=== PATIENT | male | born 1950 | race Caucasian/White ===

== ENCOUNTER 2023-09-12 20:18 | Inpatient (IN) | payer BC, MEDICARE, SELFPAY ==
[2023-09-12 17:46] VITALS: BP 167/87
[2023-09-12 18:16] LABS: COVID-19 Antigen Negative (Negative)
[2023-09-12 18:23] VITALS: BMI 23.5
[2023-09-12] MEDS: DECADRON 10 MG IV (18:57)
[2023-09-12] MEDS: DUONEB 3 ML INH (18:58)
[2023-09-12 19:00] VITALS: BP 90/76
[2023-09-12 19:07] LABS: % Basophils 0.4 % (0-2); % Immature Granulocytes 0.8 % (0-0.5); % Monocytes 7.8 % (1.7-9.3); Absolute Basophils 0.1 10^3/uL (0-0.2); Absolute Immature Granulocytes 0.2 10^3/uL (0-0.05); Absolute Lymphocytes 0.8 10^3/uL (1.2-3.4); Hematocrit 36.3 % (39.0-52.0); Hemoglobin 12.7 g/dL (13.0-18.0); Mean Corpuscular Hgb 30.4 pg (27.0-31.0); Mean Corpuscular Volume 86.8 fL (80.0-94.0); Mean Platelet Volume 9.6 fL (7.4-10.4); Nucleated Red Blood Cells % 0 % (-); Platelet Count 422 10^3/uL (130-400); Red Blood Cell Count 4.18 10^6/uL (4.70-6.10); Red Cell Dist. Width 14.8 % (11.5-14.5); White Blood Cell Count 26.2 10^3/uL (4.8-10.8)
[2023-09-12 19:19] LABS: ALT (SGPT) 49 U/L (0-50); AST (SGOT) 36 U/L (17-59); Albumin 3.9 g/dl (3.5-5.0); Alkaline Phosphatase 83 U/L (38-126); Blood Urea Nitrogen 10 mg/dl (9-20); Calcium 9.2 mg/dl (8.4-10.2); Carbon Dioxide 28 mmol/L (22-30); Chloride 94 mmol/L (98-107); Estimated Creatinine Clearance 111 ml/min; Glucose 116 mg/dl (70-99); Potassium 4.4 mmol/L (3.5-5.1); Sodium 127 mmol/L (135-145); Total Bilirubin 0.5 mg/dl (0.2-1.3); Total Protein 7.2 g/dl (6.3-8.2); eGFR > 60.00
[2023-09-12 19:20] LABS: Lactic Acid 0.9 mmol/L (0.7-2.0)
--- NOTE | 2023-09-12 19:27 | ED.GENMED ---
History of Present Illness
General
Chief Complaint: Breathing Problem
Source: patient and family
Exam Limitations: none
Time Seen by Provider: 09/12/23 18:21
Nursing documentation reviewed up to this point in time: agreed with
Travel History
Have you had any contact with someone who has COVID-19?: No
Do you have any symptoms of coronavirus? Fever > 100 degrees, chills, cough, shortness of breath, sore throat, loss of taste or smell, muscle aches, or headache?: Yes
Symptoms:: cough
History of Present Illness
History of Present Illness:
72-year-old male quit smoking 2 weeks ago, has been sick with upper respiratory infection for a little over a week was had a christening, since then he has had some cough chills sweats possibly fever decreased p.o. intake worse at night he is an ex
alcoholic has been dry for about 5 years after rehab he is retired he uses a nebulizer though never formally diagnosed with COPD states he ran out of [employer] for his nebulizer
Past History
Past History
ED Past Medical History: HTN; Negative COPD
ED Past Surgical History: None
Social History
Tobacco: Former smoker
Alcohol: Former
Drug: None
Personal:
Living: with family
Employment: Retired
Review of Systems
Review of Systems
All Other Systems: Not applicable
Constitutional: Reports fever, fatigue, sleep disturbance and chills
Respiratory: Reports cough and trouble breathing
Cardiac: Reports no symptoms
ABD/GI: Reports no symptoms
Musculoskeletal: Reports no symptoms
Neurological: Reports weakness
Endocrine: Reports no symptoms
Phy Exam
Physical Exam
Physical Exam:
Physical Exam
General: 72-year-old male chronically ill-appearing
Neck: Lips are dry
Heart: Tachycardia
Lungs: Diminished breath sounds with wheeze and rhonchi right greater than left
Abdomen: Nontender
Neuro: alert and oriented. no focal neurological deficits
Skin: no rash
Psychiatric: well kept. interactive and cooperative
Extremities: no edema. no calf tenderness.
Scores
Heart Failure Risk
Heart Failure Risk Score: Not Applicable
Course
Orders/Labs/Results
Orders:
Orders
09/12/23 Dinner
Regular
At Your Request: Full Participation
Does patient need a safe tray?: No
09/12/23 17:52
COVID-19 Antigen Urgent
Source: Nasal Swab
Influenza A+B Rapid Molecular Urgent
VERONICA Source: Nasal Swab
Specimen Description:
09/12/23 18:45
Electrocardiogram (*1) Stat
Reason for Study: Other
Other Reason for Exam: pneumonia
Cardiac Monitoring- Treatment ONCE
EKG- Treatment ONCE
IV Insert/Care/Rem.- Treatment PRN
Dexamethasone Sod Phosphate [Decadron] 10 mg IV NOW STA
Ipratropium/Albuterol Sulfate [Duoneb] 3 ml INH R NOW STA
CR Chest Portable - 1 View Urgent
Comment:
Reason For Exam: sob low sats
Reason Study Needs to be Portable: Patient Unstable
09/12/23 18:50
Blood Culture Q30M
VERONICA Source: Blood/Venous
Specimen Description:
09/12/23 18:51
Complete Blood Count/With Diff Urgent
Comprehensive Metabolic Panel Urgent
Lactic Acid Q4H
Comment: CANCEL 2nd LACTIC ACID IF 1st LACTIC ACID IS LESS THAN 2
Blood Culture Q30M
VERONICA Source: Blood/Venous
Specimen Description:
09/12/23 19:26
Azithromycin [Zithromax] 500 mg PO NOW STA
CefTRIAXone [Rocephin] 1,000 mg IV NOW STA
09/12/23 19:51
Admit/Transfer Patient As Directed
Co-Sign Provider:
Level of Care: Inpatient admission
Assign to:: Medical/Surgical
Physician / Group: deirdre
Diagnosis: pneumonia, copd exacerbation
Reason for Hospitalization: pneumonia, copd exacerbation
Expected length of stay greater than two midnights?: Yes
ELOS- Estimated Length of Stay in days: 2
I certify the patient meets the requirements for IP care: Yes
09/12/23 19:52
Code Status As Directed
Resuscitation Status: Full Code
09/12/23 19:54
Sputum Culture [Respiratory Culture/Gram Stain] Urgent
VERONICA Source: Sputum
Specimen Description:
09/12/23 20:56
0.9% Sodium Chloride 1000 ml [Nss] 1,000 ml IV 100 mls/hr
Acetaminophen [Tylenol] 650 mg PO Q4HPRN PRN
Guaifenesin [Mucinex] 600 mg PO Q12
Heparin 5,000 units SC Q12
09/12/23 20:56
Activity As Directed
Activity Level: As Tolerated
Intake/ Output As Directed
Frequency: Per unit guidelines
Vital Signs As Directed
Frequency: Per unit guidelines
DX Deep Vein Thrombosis Video Routine
09/13/23 06:00
Basic Metabolic Panel IN AM
Complete Blood Count/With Diff IN AM
Dexamethasone Sod Phosphate [Decadron] 4 mg IV Q12H
09/13/23 08:00
Aspirin Low Dose EC [Aspir Low (Enteric Coated)] 81 mg PO DAILY
Cholecalciferol (Vitamin D3) [VITAMIN D3 (cholecalciferol)] 50 mcg PO DAILY
Ipratropium/Albuterol Sulfate [Duoneb] 3 ml INH R QID
09/13/23 20:00
Azithromycin 500 mg/250 ml [Zithromax Infusion] 500 mg in 250 ml IV Q24H
CefTRIAXone [Rocephin] 1,000 mg IV Q24H
Abnormal Lab Results
09/12/23
18:51
WBC 26.2 H 10^3/uL
(4.8-10.8)
RBC 4.18 L 10^6/uL
(4.70-6.10)
Hgb 12.7 L g/dL
(13.0-18.0)
Hct 36.3 L %
(39.0-52.0)
RDW 14.8 H %
(11.5-14.5)
Plt Count 422 H 10^3/uL
(130-400)
Abs Immat Gran (auto) 0.2 H 10^3/uL
(0-0.05)
Absolute Neuts (auto) 23.0 H 10^3/uL
(1.4-6.5)
Absolute Lymphs (auto) 0.8 L 10^3/uL
(1.2-3.4)
Absolute Monos (auto) 2.0 H 10^3/uL
(0.1-0.6)
Immature Gran % 0.8 H %
(0-0.5)
Neutrophils % 88.0 H %
(42.2-75.2)
Lymphocytes % 3.0 L %
(20.5-51.1)
Sodium 127 L mmol/L
(135-145)
Chloride 94 L mmol/L
(98-107)
Creatinine 0.6 L mg/dL
(0.7-1.3)
Glucose 116 H mg/dl
(70-99)
09/12/23 18:51
09/12/23 18:51
Vital Signs
Initial and Last Documented VS:
Initial Vital Signs
Temp Pulse Resp BP Pulse Ox
100.0 F 112 18 167/87 94
09/12/23 17:46 09/12/23 17:46 09/12/23 17:46 09/12/23 17:46 09/12/23 17:46
Last Documented Vital Signs
Temp Pulse Resp BP Pulse Ox
99.6 F 106 20 158/94 96
09/12/23 21:06 09/12/23 21:06 09/12/23 21:06 09/12/23 21:06 09/12/23 21:06
MDM/Problems Addressed
Differential Diagnosis Includes:
COPD pneumonia bronchitis pneumothorax doubt PE
MDM/Problems Addressed:
Cough fever shortness of breath chills
Chronic conditions affecting care:
Ex-smoker recently quit likely COPD
Chronic conditions affecting care: COPD
Acute Exacerbation and/or Progression of Chronic Illness: COPD
*Radiology
Radiology exam reviewed: preliminary read by ED provider
*Pulse Oximetry
Patient hypoxic: yes
Comment: 88
*EKG
Interpreted by ED Provider?: Yes
Interpretation: abnormal
Comparison EKG: no comparison EKG present
Heart Rate: 88
Rate: normal
Rhythm: sinus
Ischemia: non-specific ST changes
*Vest Presser Interpretation
Rate: tachycardiac
Interpretation: abnormal
Heart Rate: 105
Rhythm: sinus
*Critical Care Note
Total Time (30-74mins, 75-104mins- exclusive of procedures): 15
Patient Management
Social determinants of health affecting care: Living situation and Strong social support
Discussion with other providers: Hospitalist
Escalation/DeEscalation of care consider admission/obs:
Patient with significant leukocytosis looks like pneumonia suspect underlying COPD is hypoxic 88% will require admission
ED Attending Note
-
Portions of this chart may have been created with voice recognition software.� Occasional wrong word or��sound alike� substitutions may have occurred due to the inherent limitations of voice recognition software.
Discharge Plan
Departure
Patient Disposition: Admit
Date of Disposition: 09/12/23
Time of Disposition: 19:30
Admit to: Med/Surg
Presentation/result/management discussed w/ accepting MD/DO: Hospitalist
Condition: Fair
Covid-19: Negative COVID-19
Discharge Problem:
COPD exacerbation, Pneumonia, Hypoxia
Interventions
Interventions:
*Risk Screen - Suicide Last Done: 09/12/23 21:14
*General Assessment Last Done: 09/12/23 18:23
*Neglect/Abuse Screening Last Done: 09/12/23 17:46
ED- Fall Risk Assessment Last Done: 09/12/23 18:23
*ED COVID-19 Vaccine History Last Done: 09/12/23 21:14
*Nursing Disposition Last Done: 09/12/23 20:59
ED- Cardiac Assessment Last Done: 09/12/23 18:23
ED- Pulmonary Assessment Last Done: 09/12/23 18:23
Discharge Date and Time
Discharge Date/Time: 09/12/23 21:00
[2023-09-12] MEDS: ROCEPHIN 1000 MG IV (19:30)
[2023-09-12] MEDS: ZITHROMAX 500 MG PO (19:30)
--- NOTE | 2023-09-12 19:55 | HPS.HSE ---
Addendum entered and electronically signed by Maya Chandler MD 09/12/23 19:58:
There maybe a small right sided pleural effusion, which may require drainage if sufficiently large.
Original Note:
Family Physician
-
Family Physician: Seng Peres
Chief Complaint
-
shortness of breath, cough
History of Present Illness
72-year-old male past medical history of COPD, SIADH, steroid-induced hyperglycemia, history of alcohol use disorder, vitamin D deficiency, presenting with sore throat, headache, productive cough and shortness of breath for the past 1-1/2 weeks
after attending [facility] shortly prior. Symptoms got worse since then. No sick contacts. No nausea or vomiting or diarrhea. No abdominal pain. No chest pain. He also ran out of his nebulizers and blood pressure medications.
Patient smokes a pack of cigarettes a day but stopped smoking in the past week but he could not breathe. He denies alcohol use.
Medical History
Past Medical History
Past Medical History: Reports Other ( COPD, SIADH, steroid-induced hyperglycemia, history of alcohol use disorder, vitamin D deficiency)
Past Surgical History: Reports None
Social History
Tobacco: Smoker
Alcohol: Former
Drug: None
Family History
Family History: Not pertinent
Allergies / Home Medications
Allergies reflects when Allergies were last updated in [facility].
Home Medications with original date entered in [facility]
Allergy/Medication List:
Allergies
Allergy/AdvReac Type Severity Reaction Status Date / Time
bee venom protein (honey bee) Allergy Hives Verified 07/10/22 18:11
Home Medications
acetaminophen 325 mg tablet (Tylenol) 650 mg PO Q6H PRN mild pain 07/11/22
aspirin 81 mg tablet,delayed release 81 mg PO DAILY 07/11/22
cholecalciferol (vitamin D3) 50 mcg (2,000 unit) tablet 2,000 unit PO DAILY #0 tabs 07/16/22
ipratropium 0.5 mg-albuterol 3 mg (2.5 mg base)/3 mL nebulization soln 3 ml inhalation R QID PRN sob/wheezing 09/12/23
Review of Systems
-
History Source: Patient
A 12 point ROS was completed and negative except as noted: Yes
Constitutional: Reports No Symptoms
EENT: Reports No Symptoms
Respiratory: Reports See HPI
Cardiac: Reports No Symptoms
Abdomen/GI: Reports No Symptoms
: Reports No Symptoms
Musculoskeletal: Reports No Symptoms
Skin: Reports No Symptoms
Neurological: Reports No Symptoms
Endocrine: Reports No Symptoms
Hematologic/Lymphatic: Reports No Symptoms
Psych: Reports No Symptoms
Physical Exam
Vital Signs
Vital Signs
Temp Pulse Resp BP Pulse Ox
100.0 F 108 27 90/76 94
09/12/23 17:46 09/12/23 19:30 09/12/23 19:30 09/12/23 19:00 09/12/23 17:46
Physical Exam
General: Well Developed, Well Nourished and No Apparent Distress
HEENT: NormoCephalic, Moist mucous membranes and Atraumatic
Respiratory: Wheezes (at bases )
Cardiac: S1/S2 and Regular Rhythm; No Murmur or Rub
GI: Soft, Non Tender, Non Distended and Normal Bowel Sounds; No Organomegaly
Rectal: Deferred by Provider
Musculoskeletal: No Clubbing, No Cyanosis and No Edema
Skin: No Rash
Neuro: Nonfocal/grossly intact
Laboratory Results
-
09/12/23 18:51
09/12/23 18:51
Laboratory Results
Lactic Acid 0.9 mmol/L (0.7-2.0) 09/12/23 18:51
Total Bilirubin 0.5 mg/dl (0.2-1.3) 09/12/23 18:51
AST 36 U/L (17-59) 09/12/23 18:51
ALT 49 U/L (0-50) 09/12/23 18:51
Alkaline Phosphatase 83 U/L (38-126) 09/12/23 18:51
Data Reviewed
-
Lab Data: Labs Reviewed by me
Old Records: Reviewed
Impression/Plan
-
IMPRESSION:
PLAN:
# Sepsis (fever, tachycardia, leukocytosis, tachypnea ) secondary to commune acquired pneumonia
-COVID and influenza negative
-Chest x-ray appears to show right middle lobe pneumonia, report pending
-Blood cultures, sputum culture
-IV fluids
-Ceftriaxone/azithromycin
# COPD exacerbation
# Recent smoker
-bilateral wheezing at bases
-Dexamethasone 4 mg every 12
-DuoNebs every 6 hours
-Mucinex
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
-Monitor with IV fluids
Thrombocytosis secondary to infection
-Continue to monitor
Primary alcohol use disorder
-No alcohol in 5 years
Vitamin D deficiency
-Continue vitamin D
Full code
DVT prophylaxis�heparin
Regular diet
[2023-09-12 20:01] VITALS: BP 118/64
[2023-09-12 21:06] VITALS: BP 158/94; BMI 23.3
--- NOTE | 2023-09-12 21:30 | PTCARENOTE ---
Patient admitted from ED. Patient AAO x3, on 2LNC, complains of mild sob with activity. Patient in no acute distress otherwise. Patient oriented to room and call ozuna is within reach.
[2023-09-12] MEDS: NSS 1000 IV (21:57)
[2023-09-12] MEDS: MUCINEX 600 MG PO (21:57)
[2023-09-12] MEDS: HEPARIN 5000 UNITS SC (21:58)
[2023-09-12 23:32] VITALS: BP 133/65
[2023-09-13] MEDS: DECADRON 4 MG IV (05:28)
[2023-09-13] MEDS: NSS 1000 IV (06:07)
[2023-09-13 06:26] LABS: % Basophils 0.2 % (0-2); % Immature Granulocytes 1.9 % (0-0.5); % Lymphocytes 2.7 % (20.5-51.1); % Monocytes 1.4 % (1.7-9.3); % Neutrophils 93.8 % (42.2-75.2); Absolute Immature Granulocytes 0.4 10^3/uL (0-0.05); Absolute Lymphocytes 0.5 10^3/uL (1.2-3.4); Absolute Monocytes 0.3 10^3/uL (0.1-0.6); Hematocrit 34.5 % (39.0-52.0); Hemoglobin 11.8 g/dL (13.0-18.0); Mean Corp Hgb Conc. 34.2 g/dL (33.0-37.0); Mean Corpuscular Hgb 30.6 pg (27.0-31.0); Mean Corpuscular Volume 89.4 fL (80.0-94.0); Mean Platelet Volume 10.1 fL (7.4-10.4); Nucleated Red Blood Cells % 0 % (-); Platelet Count 401 10^3/uL (130-400); Red Blood Cell Count 3.86 10^6/uL (4.70-6.10); Red Cell Dist. Width 14.6 % (11.5-14.5); White Blood Cell Count 19.2 10^3/uL (4.8-10.8)
[2023-09-13 06:51] LABS: Blood Urea Nitrogen 11 mg/dl (9-20); Calcium 8.6 mg/dl (8.4-10.2); Carbon Dioxide 24 mmol/L (22-30); Chloride 99 mmol/L (98-107); Estimated Creatinine Clearance 111 ml/min; Glucose 131 mg/dl (70-99); Potassium 4.8 mmol/L (3.5-5.1); Sodium 129 mmol/L (135-145); eGFR > 60.00
[2023-09-13] MEDS: DUONEB 3 ML INH ×4 (07:53→19:12)
[2023-09-13 08:10] VITALS: BP 147/82
[2023-09-13] MEDS: HEPARIN 5000 UNITS SC ×2 (08:16→20:04)
[2023-09-13] MEDS: VITAMIN D3 (cholecalciferol) 50 MCG PO (08:18)
[2023-09-13] MEDS: ASPIR LOW (ENTERIC COATED) 81 MG PO (08:18)
[2023-09-13] MEDS: MUCINEX 600 MG PO ×2 (08:18→20:03)
--- NOTE | 2023-09-13 09:16 | W.PN.HOSP.TC ---
Today's Communication/Plan
-
Titrate O2
Continue neb treatments
Will reduce present course of IV steroids to 2 mg every 12
Will hold off on further IV fluids given hyponatremia and increased vascularity on chest x-ray
Assessment / Plan
Assessment / Plan
72-year-old male past medical history of COPD, SIADH, steroid-induced hyperglycemia, history of alcohol use disorder, vitamin D deficiency, presenting with sore throat, headache, productive cough and shortness of breath for the past 1-1/2 weeks
after attending [facility] shortly prior. Symptoms got worse since then. No sick contacts. No nausea or vomiting or diarrhea. No abdominal pain. No chest pain. He also ran out of his nebulizers and blood pressure medications.
Patient smokes a pack of cigarettes a day but stopped smoking in the past week but he could not breathe. He denies alcohol use.
# Sepsis (fever, tachycardia, leukocytosis, tachypnea ) secondary to commune acquired pneumonia
-COVID and influenza negative
-Chest x-ray appears to show right middle lobe pneumonia, hypoxia or pneumonia in similar location/increased vascularity also noted
-Blood cultures, sputum culture
-IV fluids /with DC IV fluids at this point
-Ceftriaxone/azithromycin
# COPD exacerbation
# Recent smoker
-bilateral wheezing at bases but not impressive
-Dexamethasone 4 mg every 12
-DuoNebs every 6 hours
-Mucinex
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
-Monitor with IV fluids
Thrombocytosis secondary to infection
-Continue to monitor
Primary alcohol use disorder
-No alcohol in 5 years
Vitamin D deficiency
-Continue vitamin D
Full code
DVT prophylaxis�heparin
Regular diet
Anticipated Discharge: 24 - 48 hours
Subjective/Interval History
-
Date of Service: September 13, 2023
States he is feeling significantly better as far as his breathing and congestion from yesterday. He states that the nebulizer therapy is greatly helps. He is on 2 L nasal flow oxygen but is not on at home.
Objective Data
-
Labs:
Laboratory Results
09/13/23
05:20
WBC 19.2 H
Hgb 11.8 L
Hct 34.5 L
Plt Count 401 H
Sodium 129 L
Potassium 4.8
Chloride 99
Carbon Dioxide 24
BUN 11
Creatinine 0.4 L
Glucose 131 H
Calcium 8.6
Vital Signs:
Vital Signs
Temp Pulse Resp BP Pulse Ox
98.7 F 89 20 147/82 97
09/13/23 08:10 09/13/23 08:10 09/13/23 08:10 09/13/23 08:10 09/13/23 08:10
I&O
09/12/23 09/13/23 09/14/23
06:59 06:59 06:59
Intake Total 1380 / 1380
Output Total 525 / 525
Balance 855 / 855
Review of Systems
-
History Source: Patient
Constitutional: Reports No Symptoms
Respiratory: Reports Cough
Cardiac: Reports No Symptoms
Physical Exam
-
HEENT: Normocephalic and PERRLA
Respiratory: Rhonchi and Crackles
Cardiac: Regular Rhythm
GI: Soft and Nontender
Neuro: Awake, Alert and Oriented
Psych: Calm
Data Reviewed
-
Total Time Spent with Patient (in minutes): 56
Labs: Labs Reviewed by me (Leukocytosis has trended down from 26,000 and 19,000 today/)
--- NOTE | 2023-09-13 10:09 | CM ---
Met with patient at bedside; initial assessment completed
Pharmacy verified; [facility], [facility]
Patient lives in a multilevel home with his ; 1 step to enter; 10 steps between floors; powder room on the 1st floor; 2nd floor bath has walk-in shower, grab bar and seat
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
DME: Nebulizer
Transport: or one of his daughters will provide ride home
SNF/Rehab/Home Health utilization history: [facility]
Plan: discharge to home when medically stable; will monitor for DC needs
[2023-09-13] MEDS: DECADRON 2 MG IV ×2 (11:18→21:39)
[2023-09-13 15:52] VITALS: BP 149/76
[2023-09-13] MEDS: ROCEPHIN 1000 MG IV (20:03)
[2023-09-13] MEDS: ZITHROMAX INFUSION 250 IV (20:04)
[2023-09-13 23:05] VITALS: BP 121/66
[2023-09-14 07:18] VITALS: BP 144/78
[2023-09-14] MEDS: DUONEB 3 ML INH ×4 (07:19→20:10)
[2023-09-14 08:17] LABS: Hematocrit 35.3 % (39.0-52.0); Hemoglobin 12.1 g/dL (13.0-18.0); Mean Corp Hgb Conc. 34.3 g/dL (33.0-37.0); Mean Corpuscular Hgb 30.8 pg (27.0-31.0); Mean Corpuscular Volume 89.8 fL (80.0-94.0); Mean Platelet Volume 9.9 fL (7.4-10.4); Platelet Count 455 10^3/uL (130-400); Red Blood Cell Count 3.93 10^6/uL (4.70-6.10); Red Cell Dist. Width 14.6 % (11.5-14.5); White Blood Cell Count 23.3 10^3/uL (4.8-10.8)
[2023-09-14 08:34] LABS: Blood Urea Nitrogen 10 mg/dl (9-20); Calcium 9.1 mg/dl (8.4-10.2); Carbon Dioxide 25 mmol/L (22-30); Chloride 94 mmol/L (98-107); Estimated Creatinine Clearance 111 ml/min; Glucose 156 mg/dl (70-99); Potassium 4.7 mmol/L (3.5-5.1); Sodium 126 mmol/L (135-145); eGFR > 60.00
--- NOTE | 2023-09-14 09:29 | W.PN.HOSP.TC ---
Today's Communication/Plan
-
SSS for possible SIADH
Placed on fluid restriction
DC further IV fluid
Continue present course of Zithromax and ceftriaxone
Continue on dexamethasone 2 mg every 12 transition to oral taper next 24 hours
May need home oxygen screen
Discharge plan
Assessment / Plan
Assessment / Plan
72-year-old male past medical history of COPD, SIADH, steroid-induced hyperglycemia, history of alcohol use disorder, vitamin D deficiency, presenting with sore throat, headache, productive cough and shortness of breath for the past 1-1/2 weeks
after attending [facility] shortly prior. Symptoms got worse since then. No sick contacts. No nausea or vomiting or diarrhea. No abdominal pain. No chest pain. He also ran out of his nebulizers and blood pressure medications.
Patient smokes a pack of cigarettes a day but stopped smoking in the past week but he could not breathe. He denies alcohol use.
# Sepsis (fever, tachycardia, leukocytosis, tachypnea ) secondary to commune acquired pneumonia
-COVID and influenza negative
-Chest x-ray appears to show right middle lobe pneumonia, hypoxia or pneumonia in similar location/increased vascularity also noted
-Blood cultures, sputum culture
-IV fluids /with DC IV fluids at this point
-Ceftriaxone/azithromycin
-Remains on oxygen may require a home oxygen screen prior to discharge
Leukocytosis
-Present on admission but also now escalating due to steroid management
# COPD exacerbation
# Recent smoker
-bilateral wheezing at bases but not impressive
-Dexamethasone 4 mg every 12
-DuoNebs every 6 hours
-Mucinex
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
-IV fluids discontinued
-Placed on fluid restriction which she has been on in the past
-Obtain urine osmolality and urine sodium and creatinine along with serum Osmo to further assess for SIADH
Thrombocytosis secondary to infection
-Continue to monitor
Primary alcohol use disorder
-No alcohol in 5 years
Vitamin D deficiency
-Continue vitamin D
Full code
DVT prophylaxis�heparin
Regular diet
Anticipated Discharge: 24 - 48 hours
Subjective/Interval History
-
Date of Service: September 14, 2023
States he is breathing is a little better wants to take a shower.
Objective Data
-
Labs:
Laboratory Results
09/14/23 09/14/23
07:40 07:41
WBC 23.3 H
Hgb 12.1 L
Hct 35.3 L
Plt Count 455 H
Sodium 126 L
Potassium 4.7
Chloride 94 L
Carbon Dioxide 25
BUN 10
Creatinine 0.4 L
Glucose 156 H
Calcium 9.1
Vital Signs:
Vital Signs
Temp Pulse Resp BP Pulse Ox
97.4 F 76 16 144/78 97
09/14/23 07:18 09/14/23 07:24 09/14/23 07:24 09/14/23 07:18 09/14/23 07:24
I&O
09/13/23 09/14/23 09/15/23
06:59 06:59 06:59
Intake Total 1380 / 1380 1800 / 1800
Output Total 525 / 525 1200 / 1200
Balance 855 / 855 600 / 600
Review of Systems
-
History Source: Patient
Constitutional: Reports Weakness; Denies Fever
Respiratory: Reports Cough
Physical Exam
-
General: Well Developed
HEENT: Normocephalic
Respiratory: Rales and Rhonchi
Cardiac: Regular Rhythm
GI: Soft and Nontender
Skin: Warm
Neuro: Awake, Alert and Oriented
Psych: Calm
Data Reviewed
-
Total Time Spent with Patient (in minutes): 56
Labs: Labs Reviewed by me (White count continues up to 23.3 hemoglobin 12.1/sodium dropped to 126/blood sugar 156)
[2023-09-14] MEDS: DECADRON 2 MG IV ×2 (09:40→22:28)
[2023-09-14] MEDS: HEPARIN 5000 UNITS SC ×2 (09:41→20:05)
[2023-09-14] MEDS: ASPIR LOW (ENTERIC COATED) 81 MG PO (09:42)
[2023-09-14] MEDS: VITAMIN D3 (cholecalciferol) 50 MCG PO (09:42)
[2023-09-14] MEDS: MUCINEX 600 MG PO ×2 (09:42→20:05)
[2023-09-14 10:24] LABS: Osmolality Serum 276 mOsm/kg (275-300)
[2023-09-14 11:33] VITALS: BP 159/73
[2023-09-14 12:32] LABS: Urine Sodium 112 mmol/L (30-90)
[2023-09-14 14:15] LABS: Osmolality Urine 497 mOsm/kg (300-900)
[2023-09-14 15:21] VITALS: BP 166/81
--- NOTE | 2023-09-14 17:29 | CM ---
Spoke with patient in room.
He is on oxygen her but not at home.
Oxygen 2 liter Pox 97%.
He said Fide dgt will drive him home.
Offered Vn he declined.
Needs home ocygen test
PLAN Home no needs Watch for oxygen needs.
[2023-09-14] MEDS: ROCEPHIN 1000 MG IV (20:05)
[2023-09-14] MEDS: ZITHROMAX INFUSION 250 IV (20:05)
[2023-09-14 23:20] VITALS: BP 140/74
[2023-09-15 05:48] LABS: Hematocrit 34.9 % (39.0-52.0); Mean Corp Hgb Conc. 34.4 g/dL (33.0-37.0); Mean Corpuscular Hgb 30.8 pg (27.0-31.0); Mean Corpuscular Volume 89.7 fL (80.0-94.0); Platelet Count 488 10^3/uL (130-400); Red Blood Cell Count 3.89 10^6/uL (4.70-6.10); Red Cell Dist. Width 14.5 % (11.5-14.5); White Blood Cell Count 20.1 10^3/uL (4.8-10.8)
[2023-09-15 06:11] LABS: Blood Urea Nitrogen 12 mg/dl (9-20); Calcium 9.4 mg/dl (8.4-10.2); Carbon Dioxide 28 mmol/L (22-30); Chloride 94 mmol/L (98-107); Estimated Creatinine Clearance 111 ml/min; Glucose 125 mg/dl (70-99); Potassium 5.5 mmol/L (3.5-5.1); Sodium 130 mmol/L (135-145); eGFR > 60.00
[2023-09-15] MEDS: DUONEB 3 ML INH ×4 (07:17→19:32)
[2023-09-15 07:35] VITALS: BP 168/97
[2023-09-15] MEDS: LOKELMA 5 GRAM PO (07:51)
--- NOTE | 2023-09-15 09:31 | W.PN.HOSP.TC ---
Addendum entered and electronically signed by Peyman Dumont MD 09/15/23 13:49:
Hypokalemia and now hyperkalemia
Original Note:
Today's Communication/Plan
-
Transition to prednisone taper
Continue fluid restriction
Continue to titrate oxygen hopefully off May need home O2 screen prior to discharge plan
Continue ceftriaxone Zithromax
Monitor BMP
Improving leukocytosis
Assessment / Plan
Assessment / Plan
72-year-old male past medical history of COPD, SIADH, steroid-induced hyperglycemia, history of alcohol use disorder, vitamin D deficiency, presenting with sore throat, headache, productive cough and shortness of breath for the past 1-1/2 weeks
after attending [facility] shortly prior. Symptoms got worse since then. No sick contacts. No nausea or vomiting or diarrhea. No abdominal pain. No chest pain. He also ran out of his nebulizers and blood pressure medications.
Patient smokes a pack of cigarettes a day but stopped smoking in the past week but he could not breathe. He denies alcohol use.
# Sepsis (fever, tachycardia, leukocytosis, tachypnea ) secondary to commune acquired pneumonia
-COVID and influenza negative
-Chest x-ray appears to show right middle lobe pneumonia, hypoxia or pneumonia in similar location/increased vascularity also noted
-Blood cultures, sputum culture
-IV fluids /with DC IV fluids at this point
-Ceftriaxone/azithromycin
-Remains on oxygen may require a home oxygen screen prior to discharge
Leukocytosis
-Present on admission but also now escalating due to steroid management
# COPD exacerbation
# Recent smoker
-bilateral wheezing at bases but not impressive
-Dexamethasone 4 mg every 12>> transition to prednisone taper
-DuoNebs every 6 hours
-Mucinex
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
-IV fluids discontinued
-Placed on fluid restriction which she has been on in the past
-Obtain urine osmolality and urine sodium and creatinine along with serum Osmo to further assess for SIADH
-Urine studies in keeping with SIADH
Thrombocytosis secondary to infection
-Continue to monitor
Primary alcohol use disorder
-No alcohol in 5 years
Vitamin D deficiency
-Continue vitamin D
Full code
DVT prophylaxis�heparin
Regular diet
Anticipated Discharge: 24 - 48 hours
Subjective/Interval History
-
Date of Service: September 15, 2023
Had restful night but persisting cough this morning with bothersome not as productive however remains on 2 L nasal flow oxygen.
Objective Data
-
Labs:
Laboratory Results
09/15/23
04:39
WBC 20.1 H
Hgb 12.0 L
Hct 34.9 L
Plt Count 488 H
Sodium 130 L
Potassium 5.5 H
Chloride 94 L
Carbon Dioxide 28
BUN 12
Creatinine 0.5 L
Glucose 125 H
Calcium 9.4
Vital Signs:
Vital Signs
Temp Pulse Resp BP Pulse Ox
97.6 F 91 18 168/97 96
09/15/23 07:35 09/15/23 07:35 09/15/23 07:35 09/15/23 07:35 09/15/23 07:35
I&O
09/14/23 09/15/23 09/16/23
06:59 06:59 06:59
Intake Total 1800 / 1800 1240 / 1240
Output Total 1200 / 1200 950 / 950
Balance 600 / 600 290 / 290
Review of Systems
-
History Source: Patient
Constitutional: Denies Fever
Respiratory: Reports Cough and Wheezing
Physical Exam
-
General: Well Developed
HEENT: Normocephalic
Respiratory: Wheezes, Rhonchi and Crackles
Cardiac: Regular Rhythm
Neuro: Awake, Alert and Oriented
Psych: Calm
Data Reviewed
-
Total Time Spent with Patient (in minutes): 56
Labs: Labs Reviewed by me (Sodium up to 130 from 126/potassium was increased to 5.5 and got Lokelma/)
[2023-09-15] MEDS: VITAMIN D3 (cholecalciferol) 50 MCG PO (09:52)
[2023-09-15] MEDS: MUCINEX 600 MG PO ×2 (09:52→20:15)
[2023-09-15] MEDS: ASPIR LOW (ENTERIC COATED) 81 MG PO (09:52)
[2023-09-15] MEDS: HEPARIN 5000 UNITS SC ×2 (09:52→20:15)
[2023-09-15 15:13] VITALS: BP 151/74
[2023-09-15] MEDS: ROCEPHIN 1000 MG IV (20:15)
[2023-09-15] MEDS: ZITHROMAX INFUSION 250 IV (20:15)
[2023-09-15 23:33] VITALS: BP 118/61
[2023-09-16 06:26] LABS: Blood Urea Nitrogen 12 mg/dl (9-20); Carbon Dioxide 28 mmol/L (22-30); Chloride 95 mmol/L (98-107); Estimated Creatinine Clearance 109 ml/min; Glucose 92 mg/dl (70-99); Potassium 4.6 mmol/L (3.5-5.1); Sodium 130 mmol/L (135-145); eGFR > 60.00
[2023-09-16] MEDS: DUONEB 3 ML INH ×2 (07:27→11:02)
[2023-09-16 07:30] VITALS: BP 144/87
[2023-09-16] MEDS: ASPIR LOW (ENTERIC COATED) 81 MG PO (08:51)
[2023-09-16] MEDS: DELTASONE 30 MG PO (08:51)
[2023-09-16] MEDS: HEPARIN 5000 UNITS SC (08:51)
[2023-09-16] MEDS: VITAMIN D3 (cholecalciferol) 50 MCG PO (08:51)
[2023-09-16] MEDS: MUCINEX 600 MG PO (08:51)
--- NOTE | 2023-09-16 09:19 | W.DS.TRANS ---
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
-
Discharge Instructions:
Discharge Diagnosis/Procedures Sepsis secondary to community-acquired pneumonia
COPD exacerbation
Recent smoking cessation
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
Diet Restrict fluids to 48 oz
Activity As tolerated
Driving Restrictions As prior to admission
Bathing Restrictions None
Instructions:
Stand-Alone Forms:
Changes to Home Medications: Yes
Discharge Medications:
DC Medications w/original date entered in [facility]
aspirin 81 mg tablet,delayed release 81 mg PO DAILY Blood Clot Prevention/Tx 07/11/22
cholecalciferol (vitamin D3) 50 mcg (2,000 unit) tablet 2,000 unit PO DAILY #0 tabs 07/16/22
benzonatate 100 mg capsule 200 mg (2 x 100 mg) PO TIDPRN PRN mod cough #30 caps 09/16/23
cefdinir 300 mg capsule 300 mg PO BID #14 caps 09/16/23
guaifenesin 600 mg tablet, extended release 12 hr 600 mg PO Q12 Congestion #30 tabs 09/16/23
ipratropium 0.5 mg-albuterol 3 mg (2.5 mg base)/3 mL nebulization soln 3 ml inhalation R QID Lung/breathing issues #30 mL 09/16/23
prednisone 10 mg tablet See Rx Instructions .Route .COMPLEX Anti-inflammatory #30 tabs 09/16/23
Home Medication Changes
benzonatate 100 mg capsule 200 mg (2 x 100 mg) PO TIDPRN PRN mod cough #30 caps 09/16/23
cefdinir 300 mg capsule 300 mg PO BID #14 caps 09/16/23
guaifenesin 600 mg tablet, extended release 12 hr 600 mg PO Q12 Congestion #30 tabs 09/16/23
ipratropium 0.5 mg-albuterol 3 mg (2.5 mg base)/3 mL nebulization soln 3 ml inhalation R QID Lung/breathing issues #30 mL 09/16/23
prednisone 10 mg tablet See Rx Instructions .Route .COMPLEX Anti-inflammatory #30 tabs 09/16/23
Pending Results: No
--- NOTE | 2023-09-16 11:01 | W.DCSUMMARY ---
Discharge Summary
Discharge Data
Date of Admission: 09/12/23
Date of Discharge: 09/16/23
-
Pending Results: No
Hospital Course
72-year-old male past medical history of COPD, SIADH, steroid-induced hyperglycemia, history of alcohol use disorder, vitamin D deficiency, presenting with sore throat, headache, productive cough and shortness of breath for the past 1-1/2 weeks
after attending [facility] shortly prior. Symptoms got worse since then. No sick contacts. No nausea or vomiting or diarrhea. No abdominal pain. No chest pain. He also ran out of his nebulizers and blood pressure medications.
Patient smokes a pack of cigarettes a day but stopped smoking in the past week but he could not breathe. He denies alcohol use.
Patient met criteria for sepsis with fever tachycardia leukocytosis and tachypnea on presentation and consistent with acute community-acquired pneumonia he was tested negative for COVID and influenza a chest x-ray showed right middle lobe pneumonia
empiric management included ceftriaxone/azithromycin.
He was placed on IV steroids.
He was instructed on permanent cigarette smoking cessation which had only been stopped 1 week prior only because of his sensation of difficulty breathing
He was placed on mucolytic's antitussives and DuoNeb therapy which apparently has at home he
Was also noted to be hyponatremic and based on urine analysis and urine studies of urine osmolality and serum osmolality and urine sodium consistent with SIADH presumably in relation to underlying COPD
Initial oxygen requirements were able to be tapered off he will have a home O2 screen prior to his discharge
Leukocytosis now in keeping with steroid effects. Patient has been afebrile with symptomatic improvement
Patient can now be considered for discharge medically to continue on a outpatient course of antibiotics and a steroid taper DuoNeb aliquots were renewed for him at his request. These will be continued through his nebulizer at home.
Discharge Plan
-
Patient Disposition: Home (Routine Discharge)
Discharge Diagnosis/Procedures: Sepsis secondary to community-acquired pneumonia
COPD exacerbation
Recent smoking cessation
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
Condition: Good
Diet: Restrict fluids to 48 oz
Activity: As tolerated
Additional Activity: Need to completely abstain permanently from cigarette smoking
Driving Restrictions: As prior to admission
Bathing Restrictions: None
Referrals:
Seng Peres MD [Family Provider] - in one to two weeks
Prescriptions:
New
guaifenesin 600 mg Tablet Extended Release 12hr
600 mg PO Q12 Qty: 30 0RF
ipratropium-albuterol 0.5 mg-3 mg(2.5 mg base)/3 mL Solution For Nebulization
3 ml inhalation R QID Qty: 30 0RF
cefdinir 300 mg capsule
300 mg PO BID Qty: 14 0RF
prednisone 10 mg Tablet
See Rx Instructions .ROUTE .COMPLEX Qty: 30 0RF
Rx Instructions:
Take By Mouth:
40 mg daily x3 days, 30 mg daily x3 days,
20 mg daily x3 days, 10 mg daily x3 days.
benzonatate 100 mg Capsule
200 mg PO TIDPRN PRN (Reason: mod cough) Qty: 30 0RF
Continued
aspirin 81 mg Tablet,Delayed Release (Dr/Ec)
81 mg PO DAILY
cholecalciferol (vitamin D3) 50 mcg (2,000 unit) Tablet
2,000 unit PO DAILY Qty: 0 0RF
Discontinued
acetaminophen [Tylenol] 325 mg Tablet
650 mg PO Q6H PRN (Reason: mild pain)
ipratropium-albuterol 0.5 mg-3 mg(2.5 mg base)/3 mL solution for nebulization
3 ml inhalation R QID PRN (Reason: sob/wheezing)
Patient Comments:
09/12/2023: pt states he has been out of it for a while.
Discharge Orders:
Discharge Patient (As Directed); Ordered 09/16/23
Ordered By: Peyman Dumont
Discharge Date and Time
Print Language: TAMAZIGHT
[2023-09-16 11:30] VITALS: BP 138/79
--- NOTE | 2023-09-16 16:32 | CM ---
Patient with Dx sepsis, COPD exacerbation. Room air. Home O2 assessment today.
Met with patient who was preparing for discharge. The patient says he feels ready to go home today. IMM completed. He declined offer for VN. His son in law Jomar will provide transport home today.
No CM d/c needs identified.
Plan home today.
== END 2023-09-16 13:20 | disposition home or self-care (01) | DRG 871 ==
LOC: 4 EAST ACU 20:18
PROVIDERS: Emergency Medicine; ADMITTING PHYSICIAN Hospitalist; ATTENDING PHYSICIAN Internal Medicine; EMERGENCY PHYSICIAN Emergency Medicine; FAMILY PHYSICIAN Family Medicine
DX: A41.9 Sepsis, unspecified organism (principal); J18.9 Pneumonia, unspecified organism; J44.1 Chronic obstructive pulmonary disease with (acute) exacerbation; E22.2 Syndrome of inappropriate secretion of antidiuretic hormone; J44.0 Chronic obstructive pulmonary disease with (acute) lower respiratory infection; D75.838 Other thrombocytosis; I10 Essential (primary) hypertension; F17.200 Nicotine dependence, unspecified, uncomplicated; E55.9 Vitamin D deficiency, unspecified
CPT/HCPCS: 71045; 80048; 80053; 82570; 83605; 83930; 83935; 84300; 85025; 85027; 87040; 87070; 87077; 87147; 87205; 87502; 87811; 93005; 94640; 96374; 96375; 99285; 99406

== ENCOUNTER 2023-11-21 09:56 | Inpatient (IN) | payer BC, MEDICARE, SELFPAY ==
[2023-11-18 17:15] VITALS: BP 179/110
[2023-11-18 18:00] VITALS: BP 155/125
[2023-11-18 18:02] VITALS: BMI 24.5
--- NOTE | 2023-11-18 18:03 | ED.GENMED ---
History of Present Illness
General
Chief Complaint: Breathing Problem
Source: patient
Exam Limitations: none
Time Seen by Provider: 11/18/23 17:54
History of Present Illness
History of Present Illness:
This is a 73 year old male that comes in with c/o SOB. State that this started on with a sore throat and this continued to progress. States that he is very SOB and each day it got worse. States that he has a headache. Denies any fever,
chills, chest pain, abd pain, nausea, vomiting, diarrhea, dizziness, urinary burning.
Past History
Past History
ED Past Medical History: COPD, HTN and Other (PNA, Pleural effusion, Empyema)
ED Past Surgical History: None
Social History
Tobacco: Former smoker
Alcohol: Former
Drug: None
Personal:
Living: with family
Employment: Retired
Review of Systems
Review of Systems
All Other Systems: ROS reviewed and negative except as documented in HPI and ROS
Constitutional: Reports no symptoms; Denies fever or chills
EENT: Reports no symptoms
Respiratory: Reports trouble breathing; Denies cough
Cardiac: Reports no symptoms; Denies chest pain
ABD/GI: Reports no symptoms; Denies abdominal pain, nausea, vomiting or diarrhea
: Reports no symptoms; Denies dysuria, frequency or urgency
Musculoskeletal: Reports no symptoms
Skin: Reports no symptoms
Neurological: Reports headache; Denies dizzy
Psychiatric: Reports no symptoms
Phy Exam
General Physical Exam
General Presentation: moderate distress
General age: appears stated age
General Skin: warm and dry
General Habitus: elderly
General Mental: alert
General Hydration: appears well hydrated
ENT Exam
ENT Exam: TM's normal, pharynx normal and neck supple
Eye Exam
Eye Exam: EOMI
Cardiovascular Exam
Cardiovascular Exam: no edema, normal peripheral pulses and tachycardia
Pulmonary Exam
Pulmonary Exam: no rales, chest non tender, no crackles, no rhonchi, no cough and decreased breath sounds (with faint exp wheezing noted)
Gastrointestinal Exam
Gastrointestinal Exam: normal bowel sounds, non tender, soft, no organomegaly, no pulsatile mass and non distended
Musculoskeletal Exam
Musculoskeletal Exam: full ROM and no edema
Skin Exam
Skin Exam: normal color, warm/dry, no rash and no petechia
Psychiatric Exam
Psychiatric Exam: normal mood/affect
Scores
Heart Failure Risk
Heart Failure Risk Score: Not Applicable
Course
Orders/Labs/Results
Orders:
Orders
11/18/23 17:18
Electrocardiogram (*1) Urgent
Reason for Study: Shortness of Breath
EKG- Treatment ONCE
11/18/23 18:02
Dexamethasone Sod Phosphate [Decadron] 20 mg IV NOW STA
Ipratropium/Albuterol Sulfate [Duoneb] 3 ml INH R NOW ONE
11/18/23 18:03
CR Chest - 2 Views Urgent
Comment:
Reason For Exam: SOB
11/18/23 18:12
COVID-19 Antigen Urgent
Source: Nasal Swab
Complete Blood Count/With Diff Urgent
Comprehensive Metabolic Panel Urgent
Troponin I Urgent
Abnormal Lab Results
11/18/23
18:12
RDW 15.7 H %
(11.5-14.5)
Abs Immat Gran (auto) 0.1 H 10^3/uL
(0-0.05)
Absolute Neuts (auto) 9.0 H 10^3/uL
(1.4-6.5)
Absolute Lymphs (auto) 0.9 L 10^3/uL
(1.2-3.4)
Immature Gran % 0.7 H %
(0-0.5)
Neutrophils % 84.2 H %
(42.2-75.2)
Lymphocytes % 8.2 L %
(20.5-51.1)
Sodium 131 L mmol/L
(135-145)
Chloride 95 L mmol/L
(98-107)
Creatinine 0.6 L mg/dL
(0.7-1.3)
Glucose 102 H mg/dl
(70-99)
Albumin 5.1 H g/dl
(3.5-5.0)
11/18/23 18:12
11/18/23 18:12
Slight Hyponatremia, chloride low. Glucose nonfasting. troponin 0.013, COVID negative.
Vital Signs
Initial and Last Documented VS:
Initial Vital Signs
Temp Pulse Resp BP Pulse Ox
99.0 F 103 18 179/110 94
11/18/23 17:15 11/18/23 17:15 11/18/23 17:15 11/18/23 17:15 11/18/23 17:15
Last Documented Vital Signs
Temp Pulse Resp BP Pulse Ox
99.0 F 96 20 155/125 94
11/18/23 17:15 11/18/23 18:30 11/18/23 18:30 11/18/23 18:00 11/18/23 18:50
MDM/Problems Addressed
Differential Diagnosis Includes:
Pleural effusion, COPD exacerbation
MDM/Problems Addressed:
This is a 73 year old male that comes in with c/o SOB. States that this started on with sore throat and continued to get worse.
Will get labs. Chest -X-ray, IV steroids and Duo neb.
back into see patient. Patient seems to be doing some better but lungs remain very decreased with few crackles noted. Will admit for further evaluation and observation. Hospitalist notified.
Chronic conditions affecting care: COPD
Acute Exacerbation and/or Progression of Chronic Illness: COPD
*Radiology
Radiology exam reviewed: radiology read reviewed (Chest-Small right pleural effusion versus chronic pleural-parenchymal thickening. Similar appearance compared to previous chest radiographs. )
*Pulse Oximetry
Patient hypoxic: yes
Comment: 85% room air
*Plastic Printer Interpretation
Rate: tachycardiac
Heart Rate: 101
Rhythm: sinus
*Critical Care Note
Total Time (30-74mins, 75-104mins- exclusive of procedures): Not Applicable
ED Attending Note
-
Portions of this chart may have been created with voice recognition software.� Occasional wrong word or��sound alike� substitutions may have occurred due to the inherent limitations of voice recognition software.
Discharge Plan
Departure
Patient Disposition: Admit
Date of Disposition: 11/18/23
Time of Disposition: 19:37
Admit to: Telemetry
Presentation/result/management discussed w/ accepting MD/DO: Hospitalist
Patient with high blood pressure during this ER visit?: Yes
Condition: Good
Covid-19: Negative COVID-19
Discharge Problem:
COPD with acute exacerbation
Prescriptions:
No Action
aspirin 81 mg Tablet,Delayed Release (Dr/Ec)
81 mg PO DAILY
cholecalciferol (vitamin D3) 50 mcg (2,000 unit) Tablet
2,000 unit PO DAILY Qty: 0 0RF
guaifenesin 600 mg Tablet Extended Release 12hr
600 mg PO Q12 Qty: 30 0RF
ipratropium-albuterol 0.5 mg-3 mg(2.5 mg base)/3 mL Solution For Nebulization
3 ml inhalation R QID Qty: 30 0RF
cefdinir 300 mg capsule
300 mg PO BID Qty: 14 0RF
prednisone 10 mg Tablet
See Rx Instructions .ROUTE .COMPLEX Qty: 30 0RF
Rx Instructions:
Take By Mouth:
40 mg daily x3 days, 30 mg daily x3 days,
20 mg daily x3 days, 10 mg daily x3 days.
benzonatate 100 mg Capsule
200 mg PO TIDPRN PRN (Reason: mod cough) Qty: 30 0RF
Referrals:
Seng Peres MD [Family Provider] -
Interventions
Interventions:
*Risk Screen - Suicide Last Done: 11/18/23 18:02
*General Assessment Last Done: 11/18/23 18:02
*Neglect/Abuse Screening Last Done: 11/18/23 18:02
ED- Fall Risk Assessment Last Done: 11/18/23 18:50
*ED COVID-19 Vaccine History Last Done: 11/18/23 18:02
ED- Cardiac Assessment Last Done: 11/18/23 18:50
ED- Pulmonary Assessment Last Done: 11/18/23 18:50
Discharge Date and Time
Print Language: MAORI
[2023-11-18] MEDS: DUONEB 3 ML INH (18:12)
[2023-11-18] MEDS: DECADRON 20 MG IV (18:12)
[2023-11-18 18:24] LABS: % Basophils 0.6 % (0-2); % Eosinophils 1.1 % (0-6); % Immature Granulocytes 0.7 % (0-0.5); % Lymphocytes 8.2 % (20.5-51.1); % Monocytes 5.2 % (1.7-9.3); % Neutrophils 84.2 % (42.2-75.2); Absolute Basophils 0.1 10^3/uL (0-0.2); Absolute Eosinophils 0.1 10^3/uL (0-0.7); Absolute Immature Granulocytes 0.1 10^3/uL (0-0.05); Absolute Lymphocytes 0.9 10^3/uL (1.2-3.4); Absolute Monocytes 0.6 10^3/uL (0.1-0.6); Hematocrit 40.8 % (39.0-52.0); Hemoglobin 14.8 g/dL (13.0-18.0); Mean Corp Hgb Conc. 36.3 g/dL (33.0-37.0); Mean Corpuscular Volume 85.4 fL (80.0-94.0); Mean Platelet Volume 9.7 fL (7.4-10.4); Nucleated Red Blood Cells % 0 % (-); Platelet Count 318 10^3/uL (130-400); Red Blood Cell Count 4.78 10^6/uL (4.70-6.10); Red Cell Dist. Width 15.7 % (11.5-14.5); White Blood Cell Count 10.7 10^3/uL (4.8-10.8)
[2023-11-18 18:36] LABS: ALT (SGPT) 19 U/L (0-50); AST (SGOT) 23 U/L (17-59); Albumin 5.1 g/dl (3.5-5.0); Alkaline Phosphatase 59 U/L (38-126); Blood Urea Nitrogen 13 mg/dl (9-20); Carbon Dioxide 24 mmol/L (22-30); Chloride 95 mmol/L (98-107); Estimated Creatinine Clearance 109 ml/min; Glucose 102 mg/dl (70-99); Sodium 131 mmol/L (135-145); Total Bilirubin 0.7 mg/dl (0.2-1.3); eGFR > 60.00
[2023-11-18 18:40] LABS: COVID-19 Antigen Negative (Negative)
[2023-11-18 18:46] LABS: Troponin I 0.013 ng/ml
[2023-11-18 19:00] VITALS: BP 150/94
--- NOTE | 2023-11-18 19:50 | HPS.HSE ---
Addendum entered and electronically signed by Cody Sanchez MD 11/18/23 20:08:
Lungs exam : decreased AE at both ely. POS prolonged exp wheeze. No rhonchi
Original Note:
Family Physician
-
Family Physician: Seng Peres
Chief Complaint
-
Worsening SoB
History of Present Illness
72M HX COPD, SIADH, steroid-induced hyperglycemia, former ETOH use disorder, vitamin D deficiency seen at ER for SoB
Evaluation of progressive SoB for last 4-5 days
- worsened since last
- chronic Dyspnea at baseline: SoB with walking to BR and minimal exertion at baseline
- associated sore throat and nasal congestion
- cough with minimal white sputum
- denied colored sputum production
- NEG Covid at ER
- Denies any fever, chills, chest pain
- denied myalgia and antalgia
Medical History
Past Medical History
Past Medical History: Reports Other
Additional Past Medical History:
COPD
SIADH
Steroid-induced hyperglycemia
[place] alcohol use disorder
vitamin D deficiency
Past Surgical History: Reports None
Social History
Tobacco: Smoker
Alcohol: Former
Drug: None
Family History
Family History: Not pertinent
Allergies / Home Medications
Allergies reflects when Allergies were last updated in [employer].
Home Medications with original date entered in [employer]
Allergy/Medication List:
Allergies
Allergy/AdvReac Type Severity Reaction Status Date / Time
bee venom protein (honey bee) Allergy Hives Verified 07/10/22 18:11
Home Medications
aspirin 81 mg tablet,delayed release 81 mg PO DAILY Blood Clot Prevention/Tx 07/11/22
cholecalciferol (vitamin D3) 50 mcg (2,000 unit) tablet 2,000 unit PO DAILY #0 tabs 07/16/22
ipratropium 0.5 mg-albuterol 3 mg (2.5 mg base)/3 mL nebulization soln 3 ml inhalation R QID Lung/breathing issues #30 mL 09/16/23
acetaminophen 325 mg tablet (Tylenol) 650 mg PO QIDPRN PRN mild pain 11/18/23
Review of Systems
-
History Source: Patient
A 12 point ROS was completed and negative except as noted: Yes
Constitutional: Reports No Symptoms
EENT: Reports No Symptoms
Respiratory: Reports See HPI and Trouble Breathing
Cardiac: Reports No Symptoms
Abdomen/GI: Reports No Symptoms
: Reports No Symptoms
Musculoskeletal: Reports No Symptoms
Skin: Reports No Symptoms
Neurological: Reports No Symptoms
Endocrine: Reports No Symptoms
Hematologic/Lymphatic: Reports No Symptoms
Psych: Reports No Symptoms
Physical Exam
Vital Signs
Vital Signs
Temp Pulse Resp BP Pulse Ox
99.0 F 92 20 150/94 95
11/18/23 17:15 11/18/23 19:00 11/18/23 19:00 11/18/23 19:00 11/18/23 19:45
Physical Exam
General: Well Developed, Well Nourished and No Apparent Distress
HEENT: NormoCephalic, Moist mucous membranes and Atraumatic
Cardiac: S1/S2 and Regular Rhythm; No Murmur or Rub
GI: Soft, Non Tender, Non Distended and Normal Bowel Sounds; No Organomegaly
Rectal: Deferred by Provider
Musculoskeletal: No Clubbing, No Cyanosis and No Edema
Skin: No Rash
Neuro: Nonfocal/grossly intact
Laboratory Results
-
11/18/23 18:12
11/18/23 18:12
Laboratory Results
Total Bilirubin 0.7 mg/dl (0.2-1.3) 11/18/23 18:12
AST 23 U/L (17-59) 11/18/23 18:12
ALT 19 U/L (0-50) 11/18/23 18:12
Alkaline Phosphatase 59 U/L (38-126) 11/18/23 18:12
Troponin I 0.013 ng/ml 11/18/23 18:12
Data Reviewed
-
Diagnostic Radiology: Report Reviewed by me
Lab Data: Labs Reviewed by me
Old Records: Reviewed
Impression/Plan
-
Reviewed VS:Tc 99 RR20-22 POx 94 HR low 100s BP 180/110- 155/125
Data
WCC 10.7
Na 131
K 5
Cl 95
Cr 0.6
nl eGFR
NEG TPNI
NEG Covid
11/18/23 CXR
Small right pleural effusion versus chronic pleural-parenchymal thickening.
Similar appearance compared to previous chest radiographs.
EKG report
SINUS TACHYCARDIA
OTHERWISE NORMAL ECG
WHEN COMPARED WITH ECG OF 12-SEP-2023 19:11,
NO SIGNIFICANT CHANGE WAS FOUND
ASSESSMENT & PLAN
Pending Rx reconciliation
AE- COPD; mild
Associated borderline hypoxia: afebrile, nl WCC
Unremarkable CXR for acute pathology
Quit smoking 4 weeks ago Smoker
Chronic Dyspnea at baseline: suspect Class II dyspnea with walking to BR and minimal exertion at baseline
- bilateral wheezing at bases
- IV Dexamethasone 4 mg every 12
- DuoNebs every 6 hours
- Mucinex
- Observe POx
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
- FR 1440 ml daily
- Trend Na
Former alcohol use disorder
- No alcohol in 5 years
Vitamin D deficiency
-Continue vitamin D
DVT Px: LMWH
Code: Full
Obs MS
[2023-11-18] MEDS: DUONEB INH (21:10)
[2023-11-18 21:17] VITALS: BP 162/99
[2023-11-18] MEDS: MUCINEX 600 MG PO (21:18)
[2023-11-18 23:15] VITALS: BP 137/82
[2023-11-19] MEDS: DECADRON 4 MG IV ×2 (05:20→17:03)
[2023-11-19 06:15] LABS: Blood Urea Nitrogen 12 mg/dl (9-20); Calcium 9.6 mg/dl (8.4-10.2); Carbon Dioxide 24 mmol/L (22-30); Chloride 96 mmol/L (98-107); Estimated Creatinine Clearance 109 ml/min; Glucose 133 mg/dl (70-99); Sodium 129 mmol/L (135-145); eGFR > 60.00
--- NOTE | 2023-11-19 06:24 | PTCARENOTE ---
Pt. arrived to unit from ED via stretcher. Patient able to safely ambulate from stretcher to bed in 337-2 on . ORTEGA noted. O2 @ 2L via NC. Expiratory wheezing noted. AAOx3 and able to make needs known. Oriented to unit. Call ozuna within reach.
Plan of care ongoing.
[2023-11-19 07:30] VITALS: BP 176/105
[2023-11-19] MEDS: DUONEB 3 ML INH ×3 (07:47→15:22)
[2023-11-19] MEDS: MUCINEX 600 MG PO ×2 (08:04→20:09)
[2023-11-19] MEDS: ASPIR LOW (ENTERIC COATED) 81 MG PO (08:04)
[2023-11-19] MEDS: TYLENOL 650 MG PO ×2 (08:09→18:14)
[2023-11-19 10:06] VITALS: BP 166/94
--- NOTE | 2023-11-19 10:35 | W.PN.HOSP.TC ---
Today's Communication/Plan
-
see A/P
Assessment / Plan
Assessment / Plan
HPI: 72 M PMH COPD, SIADH, steroid-induced hyperglycemia, former ETOH use disorder, vitamin D deficiency; p/w SOB ongoing for 4-5 days.
He has chronic dyspnea at baseline. Associated with sore throat, nasal congestion, cough with minimal white sputum
Denies to fever, chills, chest pain.
A/P:
# COPD exacerbation
CXR Small right pleural effusion versus chronic pleural-parenchymal thickening. Similar appearance compared to previous chest radiographs.
COVID/Flu negative
Check procal
Cont IV Dexamethasone 4 mg every 12
Cont DuoNebs ATC and PRN
Cont Mucinex
Start Acapella
# h/o nicotine dependence
Quit smoking 4 weeks [employer]
# Hyponatremia
# h/o SIADH
With concurrent low chloride level, suspect hypovolemic hyponatremic
Will lift fluid restriction
Monitor Na level
# Former alcohol use disorder
No alcohol in 5 years
# Vitamin D deficiency
Continue vitamin D
DVT Px: LMWH
Code: Full
Anticipated Discharge: 24 - 48 hours
Subjective/Interval History
-
Date of Service: November 19, 2023
Objective Data
-
Labs:
Laboratory Results
11/19/23
05:22
Sodium 129 L
Potassium 5.0
Chloride 96 L
Carbon Dioxide 24
BUN 12
Creatinine 0.5 L
Glucose 133 H
Calcium 9.6
Vital Signs:
Vital Signs
Temp Pulse Resp BP Pulse Ox
36.7 C 99 20 166/94 94
11/19/23 07:30 11/19/23 10:06 11/19/23 10:06 11/19/23 10:06 11/19/23 07:53
I&O
11/18/23 11/19/23 11/20/23
06:59 06:59 06:59
Intake Total 480 / 480
Output Total 575 / 575
Balance -95 / -95
Review of Systems
-
Respiratory: Reports Cough, Trouble Breathing and Wheezing
Physical Exam
-
General: Well Developed, Well Nourished, Comfortable and Conversant
HEENT: Normocephalic
Respiratory: Wheezes and Non Labored Respirations; Negative Accessory Resp Muscle Use
Cardiac: Regular Rhythm and S1/S2
GI: Soft and Nontender
Neuro: Awake, Alert and Oriented
Psych: Calm and Intact Judgement/Insight
Data Reviewed
-
Diagnostic Radiology: Image personally visualized and interpreted and Report Reviewed by me
Labs: Labs Reviewed by me
[2023-11-19 11:47] LABS: Procalcitonin < 0.05 ng/ml (0.0-0.25)
--- NOTE | 2023-11-19 15:26 | CM ---
Patient seen at bedside. Patient states that he lives with his in a 2 story home with a nebulizer as his only DME prior to admission. Patient currently on O2. Patient PCP is Dr. Peres and he uses the [facility] on [address] Patient plan is for
discharge home with no needs. Patient uncertain about VN needs and stated this is the first time he needed O2. CM will continue to follow for discharge planning needs.
Plan; home with no needs vs home with O2 watch for further O2 needs
[2023-11-19 16:00] VITALS: BP 152/79
[2023-11-19] MEDS: LOVENOX 40 MG SC (17:02)
[2023-11-19 19:46] LABS: Hepatitis C Antibody Negative (Negative)
[2023-11-19] MEDS: XOPENEX 0.63 MG INHALANT SOLUTION INH (19:52)
[2023-11-19 23:00] VITALS: BP 149/81
[2023-11-20 06:05] LABS: % Basophils 0.2 % (0-2); % Immature Granulocytes 0.8 % (0-0.5); % Lymphocytes 7.4 % (20.5-51.1); % Monocytes 5.3 % (1.7-9.3); % Neutrophils 86.3 % (42.2-75.2); Absolute Immature Granulocytes 0.1 10^3/uL (0-0.05); Absolute Lymphocytes 0.9 10^3/uL (1.2-3.4); Absolute Monocytes 0.6 10^3/uL (0.1-0.6); Absolute Neutrophils 9.9 10^3/uL (1.4-6.5); Hematocrit 37.2 % (39.0-52.0); Hemoglobin 13.3 g/dL (13.0-18.0); Mean Corp Hgb Conc. 35.8 g/dL (33.0-37.0); Mean Corpuscular Hgb 30.7 pg (27.0-31.0); Mean Corpuscular Volume 85.9 fL (80.0-94.0); Mean Platelet Volume 10.2 fL (7.4-10.4); Nucleated Red Blood Cells % 0 % (-); Platelet Count 333 10^3/uL (130-400); Red Blood Cell Count 4.33 10^6/uL (4.70-6.10); Red Cell Dist. Width 15.6 % (11.5-14.5); White Blood Cell Count 11.4 10^3/uL (4.8-10.8)
[2023-11-20] MEDS: DECADRON 4 MG IV ×3 (06:10→20:31)
[2023-11-20 06:26] LABS: Blood Urea Nitrogen 15 mg/dl (9-20); Calcium 9.3 mg/dl (8.4-10.2); Carbon Dioxide 28 mmol/L (22-30); Chloride 94 mmol/L (98-107); Estimated Creatinine Clearance 109 ml/min; Glucose 117 mg/dl (70-99); Potassium 5.3 mmol/L (3.5-5.1); Sodium 129 mmol/L (135-145); eGFR > 60.00
[2023-11-20 07:00] VITALS: BP 143/91
[2023-11-20] MEDS: XOPENEX 0.63 MG INHALANT SOLUTION INH ×2 (08:46→14:31)
[2023-11-20] MEDS: MUCINEX 600 MG PO ×2 (09:07→20:32)
[2023-11-20] MEDS: ASPIR LOW (ENTERIC COATED) 81 MG PO (09:07)
--- NOTE | 2023-11-20 10:36 | W.PN.HOSP.TC ---
Today's Communication/Plan
-
see A/P
Assessment / Plan
Assessment / Plan
HPI: 72 M PMH COPD, SIADH, steroid-induced hyperglycemia, former ETOH use disorder, vitamin D deficiency; p/w SOB ongoing for 4-5 days.
He has chronic dyspnea at baseline. Associated with sore throat, nasal congestion, cough with minimal white sputum
Denies to fever, chills, chest pain.
A/P:
# COPD exacerbation
CXR Small right pleural effusion versus chronic pleural-parenchymal thickening. Similar appearance compared to previous chest radiographs.
COVID/Flu negative, procal negative
Cont IV Dexamethasone 4 mg every 12
Cont DuoNebs with levalbuterol ATC and PRN
Cont Mucinex, Acapella
# h/o nicotine dependence
Quit smoking 4 weeks [employer]
# Hyponatremia
# h/o SIADH
With concurrent low chloride level, suspect hypovolemic hyponatremic
Will lift fluid restriction
Monitor Na level
# Former alcohol use disorder
No alcohol in 5 years
# Vitamin D deficiency
Continue vitamin D
DVT Px: LMWH
Code: Full
Anticipated Discharge: 24 - 48 hours
Subjective/Interval History
-
Date of Service: November 20, 2023
Objective Data
-
Labs:
Laboratory Results
11/20/23
05:21
WBC 11.4 H
Hgb 13.3
Hct 37.2 L
Plt Count 333
Sodium 129 L
Potassium 5.3 H
Chloride 94 L
Carbon Dioxide 28
BUN 15
Creatinine 0.5 L
Glucose 117 H
Calcium 9.3
Vital Signs:
Vital Signs
Temp Pulse Resp BP Pulse Ox
36.9 C 84 17 143/91 99
11/20/23 07:00 11/20/23 07:00 11/20/23 07:00 11/20/23 07:00 11/20/23 07:00
I&O
11/19/23 11/20/23 11/21/23
06:59 06:59 06:59
Intake Total 480 / 480 720 / 720 960 / 960
Output Total 575 / 575 650 / 650 675 / 675
Balance -95 / -95 70 / 70 285 / 285
Review of Systems
-
Respiratory: Reports Wheezing
Physical Exam
-
General: Well Developed, Well Nourished, Comfortable and Conversant
HEENT: Normocephalic
Respiratory: Wheezes and Non Labored Respirations; Negative Accessory Resp Muscle Use
Cardiac: Regular Rhythm and S1/S2
GI: Soft and Nontender
Neuro: Awake, Alert and Oriented
Psych: Calm and Intact Judgement/Insight
Data Reviewed
-
Diagnostic Radiology: Image personally visualized and interpreted and Report Reviewed by me
Labs: Labs Reviewed by me
[2023-11-20] MEDS: ATROVENT NEBULES 0.5 MG INH ×2 (14:31→19:44)
[2023-11-20 15:34] LABS: B.E. 3.2 mmol/L; HCO3 27.9 mmol/L (21-28); O2 Saturation % 99.1 % (94-98); PCO2 42 mmHg (35-48); PO2 101 mmHg (83-108); pH 7.43 (7.35-7.45)
--- NOTE | 2023-11-20 17:27 | CM ---
Spoke with pt and family in room . Idania letter given explained.Idania signed on chart.
Offered Vn he declined need.
On Oxygen at present.
Plan; home with no needs vs home with O2 watch for further O2 needs
[2023-11-20] MEDS: LOVENOX 40 MG SC (18:44)
[2023-11-20 23:42] VITALS: BP 136/89
[2023-11-21 05:40] LABS: % Basophils 0.3 % (0-2); % Immature Granulocytes 1.1 % (0-0.5); % Lymphocytes 5.5 % (20.5-51.1); % Neutrophils 89.1 % (42.2-75.2); Absolute Immature Granulocytes 0.1 10^3/uL (0-0.05); Absolute Lymphocytes 0.6 10^3/uL (1.2-3.4); Absolute Monocytes 0.5 10^3/uL (0.1-0.6); Absolute Neutrophils 10.2 10^3/uL (1.4-6.5); Hematocrit 37.4 % (39.0-52.0); Hemoglobin 13.5 g/dL (13.0-18.0); Mean Corp Hgb Conc. 36.1 g/dL (33.0-37.0); Mean Corpuscular Hgb 30.7 pg (27.0-31.0); Mean Platelet Volume 10.8 fL (7.4-10.4); Nucleated Red Blood Cells % 0 % (-); Platelet Count 370 10^3/uL (130-400); Red Cell Dist. Width 15.7 % (11.5-14.5); White Blood Cell Count 11.4 10^3/uL (4.8-10.8)
[2023-11-21 06:03] LABS: Blood Urea Nitrogen 14 mg/dl (9-20); Calcium 9.4 mg/dl (8.4-10.2); Carbon Dioxide 30 mmol/L (22-30); Chloride 91 mmol/L (98-107); Estimated Creatinine Clearance 109 ml/min; Glucose 120 mg/dl (70-99); Sodium 129 mmol/L (135-145); eGFR > 60.00
[2023-11-21] MEDS: DECADRON IV (06:23)
[2023-11-21] MEDS: ATROVENT NEBULES 0.5 MG INH ×3 (07:47→19:52)
[2023-11-21] MEDS: DECADRON 4 MG IV ×3 (07:57→23:57)
[2023-11-21] MEDS: MUCINEX 600 MG PO ×2 (07:57→20:32)
[2023-11-21] MEDS: ASPIR LOW (ENTERIC COATED) 81 MG PO (07:57)
[2023-11-21 08:01] VITALS: BP 102/52
--- NOTE | 2023-11-21 09:57 | W.PN.HOSP.TC ---
Today's Communication/Plan
-
see A/P
Assessment / Plan
Assessment / Plan
HPI: 72 M PMH COPD, SIADH, steroid-induced hyperglycemia, former ETOH use disorder, vitamin D deficiency; p/w SOB ongoing for 4-5 days.
He has chronic dyspnea at baseline. Associated with sore throat, nasal congestion, cough with minimal white sputum
Denies to fever, chills, chest pain.
A/P:
# COPD exacerbation
CXR Small right pleural effusion versus chronic pleural-parenchymal thickening. Similar appearance compared to previous chest radiographs.
CT Chest: No acute disease of the chest. No evidence of pulmonary embolus. Mild right lower lobe and right middle lobe atelectasis versus scarring. Mild posterior right lower lobe pleural thickening. Stable
COVID/Flu negative, procal negative
Cont IV Dexamethasone, adjust to 4 mg Q8H
Cont Atrovent Neb, pt does not tolerate albuterol/levalbuterol neb
Cont Mucinex, Acapella
Start vest therpay
# h/o nicotine dependence
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
# Hyponatremia
# h/o SIADH
With concurrent low chloride level, suspect hypovolemic hyponatremic
Will lift fluid restriction
Monitor Na level
# Former alcohol use disorder
No alcohol in 5 years
# Vitamin D deficiency
Continue vitamin D
DVT Px: LMWH
Code: Full
DW RN
Anticipated Discharge: 24 - 48 hours
Subjective/Interval History
-
Date of Service: November 21, 2023
Objective Data
-
Labs:
Laboratory Results
11/21/23
05:15
WBC 11.4 H
Hgb 13.5
Hct 37.4 L
Plt Count 370
Sodium 129 L
Potassium 5.0
Chloride 91 L
Carbon Dioxide 30
BUN 14
Creatinine 0.6 L
Glucose 120 H
Calcium 9.4
Vital Signs:
Vital Signs
Temp Pulse Resp BP Pulse Ox
36.5 C 78 17 102/52 99
11/21/23 08:01 11/21/23 08:01 11/21/23 08:01 11/21/23 08:01 11/21/23 08:01
I&O
11/20/23 11/21/23 11/22/23
06:59 06:59 06:59
Intake Total 720 / 720 1920 / 1920
Output Total 650 / 650 1700 / 1700
Balance 70 / 70 220 / 220
Review of Systems
-
Respiratory: Reports Wheezing
Physical Exam
-
General: Well Developed, Well Nourished, Comfortable and Conversant
HEENT: Normocephalic
Respiratory: Wheezes and Non Labored Respirations; Negative Accessory Resp Muscle Use
Cardiac: Regular Rhythm and S1/S2
GI: Soft and Nontender
Neuro: Awake, Alert and Oriented
Psych: Calm and Intact Judgement/Insight
Data Reviewed
-
Diagnostic Radiology: Image personally visualized and interpreted and Report Reviewed by me
Labs: Labs Reviewed by me
[2023-11-21 10:10] VITALS: BMI 24.3
--- NOTE | 2023-11-21 10:35 | PHANOTE ---
11/20/2023 INHALER EDUCATION
Met with patient to provide inhaler education using a demonstration Ellipta Inhaler. Patient open to using an inhaler at home for his COPD. Currently at home he only has ipratropium-albuterol nebulizing solution that he uses to manage his COPD.
Insurance would cover an Anoro Ellipta Inhaler (LAMA/LABA). Discussed with Dr. Hylton.
[2023-11-21 15:33] VITALS: BP 160/94
--- NOTE | 2023-11-21 17:14 | CM ---
Spoke with pt in room.
Pt changed to inpatient .IMM given explained signed on chart.
Offered VN he declined need.
Watch for home oxygen needs
Willl start on Smart vest tonight .
Plan; home with no needs vs home with O2 watch for further O2 needs
[2023-11-21] MEDS: LOVENOX 40 MG SC (17:32)
[2023-11-21 18:12] VITALS: BP 125/60
[2023-11-21] MEDS: TYLENOL 650 MG PO (20:38)
[2023-11-21 23:00] VITALS: BP 143/90
[2023-11-22] MEDS: ATROVENT NEBULES 0.5 MG INH ×2 (06:28→12:48)
[2023-11-22 06:30] LABS: % Basophils 0.2 % (0-2); % Immature Granulocytes 1.3 % (0-0.5); % Lymphocytes 4.5 % (20.5-51.1); % Monocytes 3.9 % (1.7-9.3); % Neutrophils 90.1 % (42.2-75.2); Absolute Immature Granulocytes 0.2 10^3/uL (0-0.05); Absolute Lymphocytes 0.8 10^3/uL (1.2-3.4); Absolute Monocytes 0.7 10^3/uL (0.1-0.6); Absolute Neutrophils 15.3 10^3/uL (1.4-6.5); Hematocrit 41.7 % (39.0-52.0); Hemoglobin 14.6 g/dL (13.0-18.0); Mean Corpuscular Hgb 30.9 pg (27.0-31.0); Mean Corpuscular Volume 88.3 fL (80.0-94.0); Mean Platelet Volume 10.4 fL (7.4-10.4); Nucleated Red Blood Cells % 0 % (-); Platelet Count 390 10^3/uL (130-400); Red Blood Cell Count 4.72 10^6/uL (4.70-6.10); Red Cell Dist. Width 15.8 % (11.5-14.5)
[2023-11-22 06:55] LABS: Blood Urea Nitrogen 16 mg/dl (9-20); Calcium 9.4 mg/dl (8.4-10.2); Carbon Dioxide 28 mmol/L (22-30); Chloride 92 mmol/L (98-107); Estimated Creatinine Clearance 102 ml/min; Glucose 112 mg/dl (70-99); Sodium 130 mmol/L (135-145); eGFR > 60.00
[2023-11-22 07:31] VITALS: BP 152/100
[2023-11-22] MEDS: ASPIR LOW (ENTERIC COATED) 81 MG PO (07:41)
[2023-11-22] MEDS: MUCINEX 600 MG PO ×2 (07:41→21:18)
[2023-11-22] MEDS: DECADRON 4 MG IV ×2 (07:42→16:02)
--- NOTE | 2023-11-22 10:51 | W.PN.HOSP.TC ---
Today's Communication/Plan
-
see A/P
Assessment / Plan
Assessment / Plan
HPI: 72 M PMH COPD, SIADH, steroid-induced hyperglycemia, former ETOH use disorder, vitamin D deficiency; p/w SOB ongoing for 4-5 days.
He has chronic dyspnea at baseline. Associated with sore throat, nasal congestion, cough with minimal white sputum
Denies to fever, chills, chest pain.
A/P:
# COPD exacerbation
CXR Small right pleural effusion versus chronic pleural-parenchymal thickening. Similar appearance compared to previous chest radiographs.
CT Chest: No acute disease of the chest. No evidence of pulmonary embolus. Mild right lower lobe and right middle lobe atelectasis versus scarring. Mild posterior right lower lobe pleural thickening. Stable
COVID/Flu negative, procal negative
Cont IV Dexamethasone 4 mg Q8H
Cont Atrovent Neb, pt did not tolerate albuterol or levalbuterol neb
Cont Mucinex, Acapella
Started vest therapy which is helping him bringing up phlegm
Pulm CS. Pt will need ongoing pulm follow up outpt
# h/o nicotine dependence
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
# Hyponatremia
# h/o SIADH
With concurrent low chloride level, suspect hypovolemic hyponatremic
Lifted fluid restriction
Monitor Na level
# Former alcohol use disorder
No alcohol in 5 years
# Vitamin D deficiency
Continue vitamin D
DVT Px: LMWH
Code: Full
Anticipated Discharge: > 48 hours
Subjective/Interval History
-
Date of Service: November 22, 2023
Objective Data
-
Labs:
Laboratory Results
11/22/23 11/22/23
05:32 05:33
WBC 17.0 H
Hgb 14.6
Hct 41.7
Plt Count 390
Sodium 130 L
Potassium 5.0
Chloride 92 L
Carbon Dioxide 28
BUN 16
Creatinine 0.5 L
Glucose 112 H
Calcium 9.4
Vital Signs:
Vital Signs
Temp Pulse Resp BP Pulse Ox
36.8 C 88 19 152/100 96
11/22/23 07:31 11/22/23 07:31 11/22/23 07:31 11/22/23 07:31 11/22/23 07:31
I&O
11/21/23 11/22/23 11/23/23
06:59 06:59 06:59
Intake Total 1920 / 1920 420 / 420
Output Total 1700 / 1700 910 / 910
Balance 220 / 220 -490 / -490
Review of Systems
-
Respiratory: Reports Wheezing
Physical Exam
-
General: Well Developed, Well Nourished, Comfortable, Respiratory Distress (mild) and Conversant
HEENT: Normocephalic and Oxygen (2L NC)
Respiratory: Wheezes and Non Labored Respirations; Negative Accessory Resp Muscle Use
Cardiac: Regular Rhythm and S1/S2
GI: Soft and Nontender
Neuro: Awake, Alert and Oriented
Psych: Calm and Intact Judgement/Insight
Data Reviewed
-
Diagnostic Radiology: Image personally visualized and interpreted and Report Reviewed by me
CT Scan: Report Reviewed by me
Labs: Labs Reviewed by me
--- NOTE | 2023-11-22 11:28 | CON.PUL ---
Consultation
Consultation Request
Date/Time Consultation Requested: 11/22/2023 - 1056
Date/Time Consultation Performed: 11/22/2023 - 1124
Requesting Provider: Dr. Hylton
Performing Provider: Dr. Alcantar
Reason for Consultation: COPD
Medical History
-
Chief Complaint: SOB + cough
History of Present Illness:
73-year-old male tobacco smoker with a past medical history of COPD, history of alcohol use disorder, vitamin D deficiency and history of SIADH who presents with SOB x 4-5 days. He has been having sore throat + nasal congestion with white sputum
production and his cough. No fevers, chills or chest pain. In the ER he was afebrile to 99 �F, tachycardic to 103, breathing at 18-22 breaths/min, hypertensive to 179/110, and SaO2 94% on room air. Initial labs showed normal WBC at 10.7,
hyponatremic to 131, low serum chloride of 95, and COVID antigen negative, and flu A/B were also negative. CXR was done showing chronic right-sided pleural parenchymal scarring vs pleural effusion; he was given Decadron, DuoNebs and Mucinex. He
was admitted to the hospitalist service. He has required between 0 to 2 L/min nasal cannula. CTA chest done on 11/20/2023 showing centrilobular emphysema with excessive dynamic airway collapse in the left mainstem bronchus, with bilateral bronchial
wall thickening and medial RML atelectasis with linear scarring/consolidation. Given his COPD exacerbation with intolerance to albuterol/xopenex, pulmonary service now consulted for additional management/recommendations.
When I saw the patient he was in bed on room air breathing comfortably. Has phlegm in his chest that he has difficulty getting out but for the most part his cough is not too bothersome. He says normally he does not have any phlegm production. He
is currently bringing up yellow mucus, nonbloody. He is not on home oxygen. He says he uses nebulized albuterol at home with no fast heart rate or any other complications from this. He stopped smoking about 1 month ago after he had pneumonia. He
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 Denies asbestos or beryllium exposure. He has a dog at home; no birds. Denies any recent sick contacts. Denies chest pain, headache, abd pain, nausea, fevers
chills.
PMHx: COPD, history of SIADH, alcoholism, vitamin D deficiency, tobacco use disorder, hypertension, history of pneumonia
PSHx: Noncontributory
Past Medical History
Past Medical History: Other (Above as per HPI)
Past Surgical History: Other (Above as per HPI)
Social History
Tobacco: Former Smoker (90-[id number] Hx (1PPD x 30 years))
Alcohol: Former
Drug: None
Family History
Family History: Reviewed & Not Pertinent
Allergies / Home Medications
Allergies
Allergy/AdvReac Type Severity Reaction Status Date / Time
bee venom protein (honey bee) Allergy Hives Verified 07/10/22 18:11
Home Medications
�Medication �Instructions �Recorded �Confirmed �Last Taken �Type
aspirin 81 mg tablet,delayed 81 mg PO DAILY Blood Clot 07/11/22 11/18/23 11/18/23 History
release Prevention/Tx
ipratropium 0.5 mg-albuterol 3 mg 3 ml inhalation R QID 09/16/23 11/18/23 Unknown Rx
(2.5 mg base)/3 mL nebulization Lung/breathing issues #30 mL
soln
acetaminophen 325 mg tablet 650 mg PO QIDPRN PRN mild pain 11/18/23 11/18/23 11/18/23 History
(Tylenol)
cholecalciferol (vitamin D3) 50 2,000 unit PO DAILY Supplement 11/19/23 11/18/23 11/18/23 History
mcg (2,000 unit) tablet
Review of Systems
-
History Source: Patient
All other systems: Negative unless noted
Vitals / Labs / Diagnostic Testing
Vital Signs
Temp Pulse Resp BP Pulse Ox
98.3 F 88 19 152/100 96
11/22/23 07:31 11/22/23 07:31 11/22/23 07:31 11/22/23 07:31 11/22/23 07:31
Lab Data
11/22/23 05:32
11/22/23 05:33
Diagnostic Testing:
Physical Exam
-
HEENT: Normocephalic and Anicteric
Cardiovascular: S1/S2 and Peripheral Edema (negative)
Respiratory: Wheeze (Bilaterally appreciated with auscultation upon expiration), Rales (Negative), Rhonchi (Negative), Non-Labored Respirations and Other (Prolonged expiratory phase)
GI: Soft, Non Distended, Non Tender and Normal Bowel Sounds
Neurology: Awake, Alert and Tremors (negative)
Skin: Warm and Dry
General: Respiratory Distress (negative) and Comfortable
Assessment
-
Assessment: 73-year-old male tobacco smoker with a past medical history of COPD, history of alcohol use disorder, vitamin D deficiency and history of SIADH who presents with SOB x 4-5 days. He has been having sore throat + nasal congestion with
white sputum production and his cough. No fevers, chills or chest pain. In the ER he was afebrile to 99 �F, tachycardic to 103, breathing at 18-22 breaths/min, hypertensive to 179/110, and SaO2 94% on room air. Initial labs showed normal WBC at
10.7, hyponatremic to 131, low serum chloride of 95, and COVID antigen negative, and flu A/B were also negative. CXR was done showing chronic right-sided pleural parenchymal scarring vs pleural effusion; he was given Decadron, DuoNebs and Mucinex.
He was admitted to the hospitalist service. He has required between 0 to 2 L/min nasal cannula. CTA chest done on 11/20/2023 showing centrilobular emphysema with excessive dynamic airway collapse in the left mainstem bronchus, with bilateral
bronchial wall thickening and medial RML atelectasis with linear scarring/consolidation. Given his COPD exacerbation with intolerance to albuterol/xopenex, pulmonary service now consulted for additional management/recommendations.
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
Impression:
#Acute COPD exacerbation
#Acute respiratory failure with hypoxia due to above
#Former tobacco use disorder with [id number] Hx
#Hypochloremic, hyponatremia
#HTN
#Hx of pneumonia
#Hx of alcohol use disorder (has been sober >5 years now)
Plan:
- Continue systemic steroids and wean as tolerated
- Considering patient does not tolerate nebulized xopenex and does well with nebulized albuterol at home, I will start nebulized albuterol prn, and I will start long-acting maintenance inhaler with LAMA/LABA with striverdi + spiriva
- Stop atrovent
- When patient is ready for discharge, we can DC on Anoro Ellipta versus Stiolto
- Inhaler technique was reviewed
- I will arrange for outpatient follow-up with me for full PFTs and COPD management
- Maintain SpO2 >88-94% with supplemental O2 and wean as tolerated
- COPD education
- Continue vest therapy
- Mucinex
- Flutter valve
- Nicotine cessation was reinforced
- Recommend nicotine patch
- He qualifies for lung cancer screening via annual LDCT Chest given he quit smoking about 1 month ago, has >87-xsas-fkfd history and is between the ages of 50�78. He just had a CTA chest 2 days ago so next imaging study can be done in 1 year.
This can be discussed in the office.
- Incentive spirometer encouraged
- Replete electrolytes with K>4, Mg>2
- Maintain euglycemia with goal BG >100 and <180
- DVT ppx
Pulmonary service will continue to follow along. I will arrange for outpatient follow-up with me in the office for full PFTs, discussion of LDCT chest for lung cancer screening, and symptom management of his COPD with inhalers, etc.
Total time spent today was 55 minutes for this encounter. Time includes reviewing laboratory test/imaging results, reviewing pertinent medical records, obtaining and reviewing medical history, performing an appropriate exam, ordering medications,
tests and procedures. Time also includes documentation of this encounter, coordinating patient care and communicating with other healthcare professionals. Total time does not include separately billed tests performed on this date of service.
Data:
CTA Chest 11-20-2023:
No acute disease of the chest. No evidence of pulmonary embolus.
Mild emphysematous disease.
Mild right lower lobe and right middle lobe atelectasis versus scarring.
Mild posterior right lower lobe pleural thickening. Stable
[2023-11-22 15:17] VITALS: BP 155/96
[2023-11-22] MEDS: LOVENOX 40 MG SC (18:29)
[2023-11-22] MEDS: SPIRIVA RESPIMAT 2.5 MCG 2 PUFF INH (19:14)
[2023-11-22] MEDS: STRIVERDI RESPIMAT 2 PUFF INH (19:15)
[2023-11-22] MEDS: VENTOLIN NEBULES 1.25 MG INH (19:15)
[2023-11-22 23:12] VITALS: BP 159/95
[2023-11-23] MEDS: DECADRON 4 MG IV ×3 (00:46→16:23)
[2023-11-23 06:00] VITALS: BMI 25.7
[2023-11-23 07:04] LABS: % Basophils 0.1 % (0-2); % Immature Granulocytes 2.4 % (0-0.5); % Lymphocytes 3.9 % (20.5-51.1); % Monocytes 4.3 % (1.7-9.3); % Neutrophils 89.3 % (42.2-75.2); Absolute Immature Granulocytes 0.4 10^3/uL (0-0.05); Absolute Lymphocytes 0.6 10^3/uL (1.2-3.4); Absolute Monocytes 0.7 10^3/uL (0.1-0.6); Absolute Neutrophils 14.6 10^3/uL (1.4-6.5); Hematocrit 39.3 % (39.0-52.0); Hemoglobin 13.6 g/dL (13.0-18.0); Mean Corp Hgb Conc. 34.6 g/dL (33.0-37.0); Mean Corpuscular Hgb 30.5 pg (27.0-31.0); Mean Corpuscular Volume 88.1 fL (80.0-94.0); Mean Platelet Volume 10.2 fL (7.4-10.4); Nucleated Red Blood Cells % 0 % (-); Platelet Count 367 10^3/uL (130-400); Red Blood Cell Count 4.46 10^6/uL (4.70-6.10); Red Cell Dist. Width 15.6 % (11.5-14.5); White Blood Cell Count 16.3 10^3/uL (4.8-10.8)
[2023-11-23] MEDS: VENTOLIN NEBULES 1.25 MG INH ×3 (07:13→20:14)
[2023-11-23] MEDS: SPIRIVA RESPIMAT 2.5 MCG 2 PUFF INH (07:13)
[2023-11-23] MEDS: STRIVERDI RESPIMAT 2 PUFF INH (07:14)
[2023-11-23 07:20] VITALS: BP 141/96
[2023-11-23 08:06] LABS: Blood Urea Nitrogen 20 mg/dl (9-20); Calcium 9.3 mg/dl (8.4-10.2); Carbon Dioxide 31 mmol/L (22-30); Chloride 92 mmol/L (98-107); Estimated Creatinine Clearance 102 ml/min; Glucose 109 mg/dl (70-99); Potassium 5.5 mmol/L (3.5-5.1); Sodium 131 mmol/L (135-145); eGFR > 60.00
[2023-11-23] MEDS: ASPIR LOW (ENTERIC COATED) 81 MG PO (09:01)
[2023-11-23] MEDS: MUCINEX 600 MG PO ×2 (09:01→22:17)
--- NOTE | 2023-11-23 11:27 | W.PN.HOSP.TC ---
Today's Communication/Plan
-
see A/P
Assessment / Plan
Assessment / Plan
HPI: 72 M PMH COPD, SIADH, steroid-induced hyperglycemia, former ETOH use disorder, vitamin D deficiency; p/w SOB ongoing for 4-5 days.
He has chronic dyspnea at baseline. Associated with sore throat, nasal congestion, cough with minimal white sputum
Denies to fever, chills, chest pain.
A/P:
# COPD exacerbation
CXR Small right pleural effusion versus chronic pleural-parenchymal thickening. Similar appearance compared to previous chest radiographs.
CT Chest: No acute disease of the chest. No evidence of pulmonary embolus. Mild right lower lobe and right middle lobe atelectasis versus scarring. Mild posterior right lower lobe pleural thickening. Stable
COVID/Flu negative, procal negative
Cont IV Dexamethasone 4 mg Q8H
Albuterol neb restarted and looks like pt is tolerating this time. Cont Duonebs
Cont Mucinex, Acapella, vest therapy which is helping him bringing up phlegm
Pulm on board
# h/o nicotine dependence
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
# Hyponatremia
# h/o SIADH
With concurrent low chloride level, suspect hypovolemic hyponatremic
Lifted fluid restriction
Monitor Na level
# Former alcohol use disorder
No alcohol in 5 years
# Vitamin D deficiency
Continue vitamin D
DVT Px: LMWH
Code: Full
Anticipated Discharge: 24 - 48 hours
Subjective/Interval History
-
Date of Service: November 23, 2023
Objective Data
-
Labs:
Laboratory Results
11/23/23
06:20
WBC 16.3 H
Hgb 13.6
Hct 39.3
Plt Count 367
Sodium 131 L
Potassium 5.5 H
Chloride 92 L
Carbon Dioxide 31 H
BUN 20
Creatinine 0.6 L
Glucose 109 H
Calcium 9.3
Vital Signs:
Vital Signs
Temp Pulse Resp BP Pulse Ox
36.5 C 77 17 141/96 98
11/23/23 07:20 11/23/23 07:20 11/23/23 07:20 11/23/23 07:20 11/23/23 07:20
I&O
11/22/23 11/23/23 11/24/23
06:59 06:59 06:59
Intake Total 420 / 420 780 / 780
Output Total 910 / 910 1325 / 1325
Balance -490 / -490 -545 / -545
Review of Systems
-
Respiratory: Reports Wheezing
Physical Exam
-
General: Well Developed, Well Nourished, Comfortable, Respiratory Distress (mild) and Conversant
HEENT: Normocephalic and Oxygen (2L NC)
Respiratory: Wheezes and Non Labored Respirations; Negative Accessory Resp Muscle Use
Cardiac: Regular Rhythm and S1/S2
GI: Soft and Nontender
Neuro: Awake, Alert and Oriented
Psych: Calm and Intact Judgement/Insight
Data Reviewed
-
Diagnostic Radiology: Image personally visualized and interpreted and Report Reviewed by me
CT Scan: Report Reviewed by me
Labs: Labs Reviewed by me
--- NOTE | 2023-11-23 12:29 | W.PN.PUL3 ---
Today's Communication / Plan
-
Start weaning down Decadron and hopefully can transition to prednisone either tomorrow or Sunday and continue with taper after discharge
Outpatient follow-up with full PFTs and management of his COPD
Outpatient LDCT chest for lung cancer screening - not needed until 2024 given CTA chest just 3 days ago
Up OOB as tolerated
Vest therapy while hospitalized, does not appear that he needs this upon discharge
Mucinex/flutter valve
Strict tobacco cessation was reinforced
Assessment
-
Assessment: 73-year-old male tobacco smoker with a past medical history of COPD, history of alcohol use disorder, vitamin D deficiency and history of SIADH who presents with SOB x 4-5 days. He has been having sore throat + nasal congestion with
white sputum production and his cough. No fevers, chills or chest pain. In the ER he was afebrile to 99 �F, tachycardic to 103, breathing at 18-22 breaths/min, hypertensive to 179/110, and SaO2 94% on room air. Initial labs showed normal WBC at
10.7, hyponatremic to 131, low serum chloride of 95, and COVID antigen negative, and flu A/B were also negative. CXR was done showing chronic right-sided pleural parenchymal scarring vs pleural effusion; he was given Decadron, DuoNebs and Mucinex.
He was admitted to the hospitalist service. He has required between 0 to 2 L/min nasal cannula. CTA chest done on 11/20/2023 showing centrilobular emphysema with excessive dynamic airway collapse in the left mainstem bronchus, with bilateral
bronchial wall thickening and medial RML atelectasis with linear scarring/consolidation. Given his COPD exacerbation with intolerance to albuterol/xopenex, pulmonary service now consulted for additional management/recommendations.
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
Impression:
#Acute COPD exacerbation
#Acute respiratory failure with hypoxia due to above
#Former tobacco use disorder with 02-[id number]-[id number] Hx
#Hypochloremic, hyponatremia
#HTN
#Hx of pneumonia
#Hx of alcohol use disorder (has been sober >5 years now)
Plan:
- Continue systemic steroids and wean as tolerated -wean down to 4 mg IV q12hr today from 4mg IV q8hr
- Hopefully tomorrow we can transition to prednisone taper beginning at 50 mg daily and reducing by 10 mg every fourth day until off
- Considering patient does not tolerate nebulized xopenex and does well with nebulized albuterol at home, I started nebulized albuterol prn, with long-acting maintenance inhaler with LAMA/LABA with striverdi + spiriva --> he is enjoying thsi
combination and breathing well today
- Atrovent stopped
- When patient is ready for discharge, we can DC on Anoro Ellipta versus Stiolto
- Inhaler technique was reviewed
- I will arrange for outpatient follow-up with me for full PFTs and COPD management
- Maintain SpO2 >88-94% with supplemental O2 and wean as tolerated
- COPD education
- Continue vest therapy while he remains inpatient
- Mucinex
- Flutter valve
- Nicotine cessation was reinforced
- Recommend nicotine patch
- He qualifies for lung cancer screening via annual LDCT Chest given he quit smoking about 1 month ago, has >66-bfbv-utrh history and is between the ages of 50�78. He just had a CTA chest 3 days ago so next imaging study can be done in 1 year.
This can be discussed in the office.
- Incentive spirometer encouraged
- Replete electrolytes with K>4, Mg>2
- Maintain euglycemia with goal BG >100 and <180
- DVT ppx
Pulmonary service will continue to follow along. I will arrange for outpatient follow-up with me in the office for full PFTs, discussion of LDCT chest for lung cancer screening, and symptom management of his COPD with inhalers, etc.
Total time spent today was 35 minutes for this encounter. Time includes reviewing laboratory test/imaging results, reviewing pertinent medical records, obtaining and reviewing medical history, performing an appropriate exam, ordering medications,
tests and procedures. Time also includes documentation of this encounter, coordinating patient care and communicating with other healthcare professionals. Total time does not include separately billed tests performed on this date of service.
Data:
CTA Chest 11-20-2023:
No acute disease of the chest. No evidence of pulmonary embolus.
Mild emphysematous disease.
Mild right lower lobe and right middle lobe atelectasis versus scarring.
Mild posterior right lower lobe pleural thickening. Stable
Subjective Data
-
Date of Service:
Date of Service: November 23, 2023
Chief Complaint: Pulmonary Follow Up
Subjective:
Patient seen today at bedside. Patient's daughter and son-in-law are at bedside. Patient feels much better today. On room air breathing comfortably. Denies chest pain, abdominal pain, fevers or chills. He is tolerating the striverdi + Spiriva
and not having any complications from them.
Review of Systems
General: Other (Negative unless mentioned above)
Objective Data
Data Reviewed
Vital Signs / I&O / Oxygen:
Vital Signs
Temp Pulse Resp BP Pulse Ox
97.7 F 77 17 141/96 98
11/23/23 07:20 11/23/23 07:20 11/23/23 07:20 11/23/23 07:20 11/23/23 07:20
Intake and Output
11/22/23 11/23/23 11/24/23
06:59 06:59 06:59
Intake Total 420 / 420 780 / 780
Output Total 910 / 910 1325 / 1325
Balance -490 / -490 -545 / -545
SaO2 98
Nasal Cannula flow liters per 2
minute
Physical Exam
General: Respiratory Distress (negative), Comfortable, Chills (negative) and Sweats (negative)
HEENT: Normocephalic, Anicteric and Moist Mucous Membranes
Cardiovascular: S1-S2 and Peripheral Edema (Negative)
Respiratory: Wheeze (Negative), Crackles (Negative), Rhonchi (Negative), Non-Labored Respirations and Other (Reduced breath sounds bilaterally with prolonged expiratory phase)
GI: Soft, Non Distended, Non Tender and Normal Bowel Sounds
Neurology: AO x 3 and Tremors (Negative)
Skin: Warm, Dry and Jaundice (negative)
Labs/Micro/Reports
Lab Data
11/23/23 06:20
11/23/23 06:20
--- NOTE | 2023-11-23 14:22 | CM ---
met with patient at bedside.cont iv steroids,verst therapy,iv steroids,now sating on ra.patient has declined vn.plan:home with no needs.
[2023-11-23 15:16] VITALS: BP 157/87
[2023-11-23] MEDS: LOVENOX 40 MG SC (18:20)
[2023-11-23 23:00] VITALS: BP 149/79
[2023-11-24 06:00] VITALS: BMI 26.0
[2023-11-24 07:00] VITALS: BP 163/97
[2023-11-24] MEDS: STRIVERDI RESPIMAT 2 PUFF INH (07:37)
[2023-11-24] MEDS: SPIRIVA RESPIMAT 2.5 MCG 2 PUFF INH (07:37)
[2023-11-24] MEDS: VENTOLIN NEBULES 1.25 MG INH ×3 (07:38→19:38)
[2023-11-24 08:46] LABS: % Basophils 0.2 % (0-2); % Immature Granulocytes 3.3 % (0-0.5); % Monocytes 6.8 % (1.7-9.3); % Neutrophils 84.7 % (42.2-75.2); Absolute Immature Granulocytes 0.7 10^3/uL (0-0.05); Absolute Lymphocytes 1.1 10^3/uL (1.2-3.4); Absolute Monocytes 1.5 10^3/uL (0.1-0.6); Absolute Neutrophils 18.7 10^3/uL (1.4-6.5); Hematocrit 41.8 % (39.0-52.0); Hemoglobin 14.8 g/dL (13.0-18.0); Mean Corp Hgb Conc. 35.4 g/dL (33.0-37.0); Mean Corpuscular Hgb 31.2 pg (27.0-31.0); Mean Corpuscular Volume 88.2 fL (80.0-94.0); Mean Platelet Volume 10.2 fL (7.4-10.4); Nucleated Red Blood Cells % 0 % (-); Platelet Count 422 10^3/uL (130-400); Red Blood Cell Count 4.74 10^6/uL (4.70-6.10); Red Cell Dist. Width 15.7 % (11.5-14.5)
[2023-11-24] MEDS: MUCINEX 600 MG PO ×2 (09:03→20:38)
[2023-11-24] MEDS: ASPIR LOW (ENTERIC COATED) 81 MG PO (09:03)
[2023-11-24] MEDS: DECADRON 4 MG IV ×2 (09:03→20:38)
[2023-11-24 09:15] LABS: Blood Urea Nitrogen 17 mg/dl (9-20); Calcium 9.4 mg/dl (8.4-10.2); Carbon Dioxide 30 mmol/L (22-30); Chloride 91 mmol/L (98-107); Estimated Creatinine Clearance 102 ml/min; Glucose 88 mg/dl (70-99); Potassium 4.7 mmol/L (3.5-5.1); Sodium 129 mmol/L (135-145); eGFR > 60.00
--- NOTE | 2023-11-24 11:42 | W.PN.HOSP.TC ---
Today's Communication/Plan
-
see A/P
Assessment / Plan
Assessment / Plan
HPI: 72 M PMH COPD, SIADH, steroid-induced hyperglycemia, former ETOH use disorder, vitamin D deficiency; p/w SOB ongoing for 4-5 days.
He has chronic dyspnea at baseline. Associated with sore throat, nasal congestion, cough with minimal white sputum
Denies to fever, chills, chest pain.
A/P:
# COPD exacerbation
CXR Small right pleural effusion versus chronic pleural-parenchymal thickening. Similar appearance compared to previous chest radiographs.
CT Chest: No acute disease of the chest. No evidence of pulmonary embolus. Mild right lower lobe and right middle lobe atelectasis versus scarring. Mild posterior right lower lobe pleural thickening. Stable
COVID/Flu negative, procal negative
Cont IV Dexamethasone 4 mg Q8H
Albuterol neb restarted and pt tolerating this time. Cont Duonebs
Cont Mucinex, Acapella, vest therapy which is helping him bringing up phlegm
Pulm on board
# Acute hypoxic resp insufficiency
wean 2L O2 as tolerated, pt is not on home O2
# h/o nicotine dependence
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
# Hyponatremia
# h/o SIADH
With concurrent low chloride level, suspect hypovolemic hyponatremic
Lifted fluid restriction
Monitor Na level
# Former alcohol use disorder
No alcohol in 5 years
# Vitamin D deficiency
Continue vitamin D
DVT Px: LMWH
Code: Full
DW RN
Anticipated Discharge: 24 - 48 hours
Subjective/Interval History
-
Date of Service: November 24, 2023
Objective Data
-
Labs:
Laboratory Results
11/24/23
08:13
WBC 22.0 H
Hgb 14.8
Hct 41.8
Plt Count 422 H
Sodium 129 L
Potassium 4.7
Chloride 91 L
Carbon Dioxide 30
BUN 17
Creatinine 0.5 L
Glucose 88
Calcium 9.4
Vital Signs:
Vital Signs
Temp Pulse Resp BP Pulse Ox
36.3 C 93 24 163/97 98
11/24/23 07:00 11/24/23 07:41 11/24/23 07:41 11/24/23 07:00 11/24/23 07:41
I&O
11/23/23 11/24/23 11/25/23
06:59 06:59 06:59
Intake Total 780 / 780 360 / 360
Output Total 1325 / 1325 1900 / 1900
Balance -545 / -545 -1540 / -1540
Review of Systems
-
Respiratory: Reports Wheezing
Physical Exam
-
General: Well Developed, Well Nourished, Comfortable and Conversant
HEENT: Normocephalic
Respiratory: Wheezes and Non Labored Respirations; Negative Accessory Resp Muscle Use
Cardiac: Regular Rhythm and S1/S2
GI: Soft and Nontender
Neuro: Awake, Alert and Oriented
Psych: Calm and Intact Judgement/Insight
Data Reviewed
-
Diagnostic Radiology: Image personally visualized and interpreted and Report Reviewed by me
CT Scan: Report Reviewed by me
Labs: Labs Reviewed by me
--- NOTE | 2023-11-24 13:06 | W.PN.PUL3 ---
Today's Communication / Plan
-
Improving slowly, more wheeze noted today
Continue IV steroids, can likely transition to oral course tomorrow if improving
Continue inhalers as outpatient as well
Encouraged ambulation, PT/IS, supportive care
Assessment
-
73-year-old male tobacco smoker with a past medical history of COPD, history of alcohol use disorder, vitamin D deficiency and history of SIADH who presents with SOB x 4-5 days. He has been having sore throat + nasal congestion with white sputum
production and his cough. No fevers, chills or chest pain. In the ER he was afebrile to 99 �F, tachycardic to 103, breathing at 18-22 breaths/min, hypertensive to 179/110, and SaO2 94% on room air. Initial labs showed normal WBC at 10.7,
hyponatremic to 131, low serum chloride of 95, and COVID antigen negative, and flu A/B were also negative. CXR was done showing chronic right-sided pleural parenchymal scarring vs pleural effusion; he was given Decadron, DuoNebs and Mucinex. He
was admitted to the hospitalist service. He has required between 0 to 2 L/min nasal cannula. CTA chest done on 11/20/2023 showing centrilobular emphysema with excessive dynamic airway collapse in the left mainstem bronchus, with bilateral bronchial
wall thickening and medial RML atelectasis with linear scarring/consolidation. Given his COPD exacerbation with intolerance to albuterol/xopenex, pulmonary service now consulted for additional management/recommendations.
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
Impression:
#Acute COPD exacerbation
#Acute respiratory failure with hypoxia due to above
#Former tobacco use disorder with [id number] Hx
#Hypochloremic, hyponatremia
#HTN
#Hx of pneumonia
#Hx of alcohol use disorder (has been sober >5 years now)
Plan:
Continue systemic steroids and wean as tolerated--weaned down to 4 mg IV q12hr today from 4mg IV q8hr
Still wheezing today, but better than on admission
Will transition to oral prednisone tomorrow if improving
Considering patient does not tolerate nebulized xopenex and does well with nebulized albuterol at home, I started nebulized albuterol prn, with long-acting maintenance inhaler with LAMA/LABA with striverdi + spiriva --> he is enjoying this
combination
Can continue this regiment as OP
- Atrovent stopped
- When patient is ready for discharge, we can DC on Anoro Ellipta versus Stiolto
- Inhaler technique was reviewed
- I will arrange for outpatient follow-up with me for full PFTs and COPD management
- Maintain SpO2 >88-94% with supplemental O2 and wean as tolerated
- COPD education
- Continue vest therapy while he remains inpatient
- Mucinex
- Flutter valve
- Nicotine cessation was reinforced
- Recommend nicotine patch
- He qualifies for lung cancer screening via annual LDCT Chest given he quit smoking about 1 month ago, has >44-jbqf-fquk history and is between the ages of 50�78. He just had a CTA chest 3 days ago so next imaging study can be done in 1 year.
This can be discussed in the office.
- Incentive spirometer encouraged
- Replete electrolytes with K>4, Mg>2
- Maintain euglycemia with goal BG >100 and <180
- DVT ppx
I will arrange for outpatient follow-up with me in the office for full PFTs, discussion of LDCT chest for lung cancer screening, and symptom management of his COPD with inhalers, etc.
Pulmonary service will continue to follow along.
Data:
CTA Chest 11-20-2023: No acute disease of the chest. No evidence of pulmonary embolus.Mild emphysematous disease.Mild right lower lobe and right middle lobe atelectasis versus scarring.
Mild posterior right lower lobe pleural thickening. Stable
Total time spent today was 51 minutes for this encounter. Time includes reviewing laboratory test/imaging results, reviewing pertinent medical records, obtaining and reviewing medical history, performing an appropriate exam, ordering medications,
tests and procedures. Time also includes documentation of this encounter, coordinating patient care and communicating with other healthcare professionals. Total time does not include separately billed tests performed on this date of service.
Subjective Data
-
Date of Service:
Date of Service: November 24, 2023
Chief Complaint: Pulmonary Follow Up
Subjective:
No acute events ON, remains stable on RA
Still some mild wheezing, but he feels overall improved
Objective Data
Data Reviewed
Vital Signs / I&O / Oxygen:
Vital Signs
Temp Pulse Resp BP Pulse Ox
97.3 F 93 24 163/97 98
11/24/23 07:00 11/24/23 07:41 11/24/23 07:41 11/24/23 07:00 11/24/23 07:41
Intake and Output
11/23/23 11/24/23 11/25/23
06:59 06:59 06:59
Intake Total 780 / 780 360 / 360
Output Total 1325 / 1325 1900 / 1900
Balance -545 / -545 -1540 / -1540
SaO2 98
Nasal Cannula flow liters per 2
minute
Physical Exam
General: Respiratory Distress (negative), Comfortable, Chills (negative) and Sweats (negative)
HEENT: Normocephalic, Anicteric and Moist Mucous Membranes
Cardiovascular: S1-S2 and Peripheral Edema (Negative)
Respiratory: Wheeze (bilateral) and Non-Labored Respirations
GI: Soft, Non Distended, Non Tender and Normal Bowel Sounds
Neurology: AO x 3 and Tremors (Negative)
Skin: Warm, Dry and Jaundice (negative)
Labs/Micro/Reports
Lab Data
11/24/23 08:13
11/24/23 08:13
[2023-11-24 15:00] VITALS: BP 138/84
[2023-11-24] MEDS: LOVENOX 40 MG SC (18:41)
[2023-11-24 23:03] VITALS: BP 150/89
[2023-11-25 06:00] VITALS: BMI 25.8
[2023-11-25 07:05] LABS: % Basophils 0.2 % (0-2); % Immature Granulocytes 4.4 % (0-0.5); % Lymphocytes 2.8 % (20.5-51.1); % Monocytes 3.7 % (1.7-9.3); % Neutrophils 88.9 % (42.2-75.2); Absolute Basophils 0.1 10^3/uL (0-0.2); Absolute Immature Granulocytes 1.1 10^3/uL (0-0.05); Absolute Lymphocytes 0.7 10^3/uL (1.2-3.4); Absolute Monocytes 0.9 10^3/uL (0.1-0.6); Absolute Neutrophils 21.4 10^3/uL (1.4-6.5); Hematocrit 40.2 % (39.0-52.0); Hemoglobin 14.4 g/dL (13.0-18.0); Mean Corp Hgb Conc. 35.8 g/dL (33.0-37.0); Mean Corpuscular Hgb 30.9 pg (27.0-31.0); Mean Corpuscular Volume 86.3 fL (80.0-94.0); Mean Platelet Volume 10.9 fL (7.4-10.4); Nucleated Red Blood Cells % 0 % (-); Platelet Count 445 10^3/uL (130-400); Red Blood Cell Count 4.66 10^6/uL (4.70-6.10); Red Cell Dist. Width 15.8 % (11.5-14.5); White Blood Cell Count 24.1 10^3/uL (4.8-10.8)
[2023-11-25 07:20] VITALS: BP 144/87
[2023-11-25 07:29] LABS: Blood Urea Nitrogen 16 mg/dl (9-20); Calcium 8.9 mg/dl (8.4-10.2); Carbon Dioxide 28 mmol/L (22-30); Chloride 91 mmol/L (98-107); Estimated Creatinine Clearance 102 ml/min; Glucose 96 mg/dl (70-99); Potassium 5.1 mmol/L (3.5-5.1); Sodium 127 mmol/L (135-145); eGFR > 60.00
[2023-11-25] MEDS: SPIRIVA RESPIMAT 2.5 MCG 2 PUFF INH (08:25)
[2023-11-25] MEDS: STRIVERDI RESPIMAT 2 PUFF INH (08:26)
[2023-11-25] MEDS: VENTOLIN NEBULES 1.25 MG INH ×3 (08:26→20:34)
[2023-11-25] MEDS: MUCINEX 600 MG PO ×2 (09:00→20:21)
[2023-11-25] MEDS: ASPIR LOW (ENTERIC COATED) 81 MG PO (09:01)
[2023-11-25] MEDS: DECADRON 4 MG IV (09:01)
--- NOTE | 2023-11-25 10:24 | W.PN.HOSP.TC ---
Today's Communication/Plan
-
see A/P
Assessment / Plan
Assessment / Plan
HPI: 72 M PMH COPD, SIADH, steroid-induced hyperglycemia, former ETOH use disorder, vitamin D deficiency; p/w SOB ongoing for 4-5 days.
He has chronic dyspnea at baseline. Associated with sore throat, nasal congestion, cough with minimal white sputum
Denies to fever, chills, chest pain.
A/P:
# COPD exacerbation
CXR Small right pleural effusion versus chronic pleural-parenchymal thickening. Similar appearance compared to previous chest radiographs.
CT Chest: No acute disease of the chest. No evidence of pulmonary embolus. Mild right lower lobe and right middle lobe atelectasis versus scarring. Mild posterior right lower lobe pleural thickening. Stable
COVID/Flu negative, procal negative
Cont IV Dexamethasone 4 mg Q8H
Albuterol neb restarted and pt tolerating this time. Cont Duonebs
Added azithromycin 3 days
Cont Mucinex, Acapella, vest therapy which is helping him bringing up phlegm
Pulm on board
# Acute hypoxic respiratory insufficiency, resolved
weaned off 2L NC, pt is not on home O2
# h/o nicotine dependence
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
# Hyponatremia
# h/o SIADH
With concurrent low chloride level, suspect hypovolemic hyponatremic
Lifted fluid restriction
Monitor Na level
# Former alcohol use disorder
No alcohol in 5 years
# Vitamin D deficiency
Continue vitamin D
DVT Px: LMWH
Code: Full
Anticipated Discharge: 24 - 48 hours
Subjective/Interval History
-
Date of Service: November 25, 2023
Objective Data
-
Labs:
Laboratory Results
11/25/23
05:33
WBC 24.1 H
Hgb 14.4
Hct 40.2
Plt Count 445 H
Sodium 127 L
Potassium 5.1
Chloride 91 L
Carbon Dioxide 28
BUN 16
Creatinine 0.5 L
Glucose 96
Calcium 8.9
Vital Signs:
Vital Signs
Temp Pulse Resp BP Pulse Ox
37.1 C 76 18 144/87 96
11/25/23 07:20 11/25/23 08:31 11/25/23 08:31 11/25/23 07:20 11/25/23 07:20
I&O
11/24/23 11/25/23 11/26/23
06:59 06:59 06:59
Intake Total 360 / 360 1360 / 1360
Output Total 1900 / 1900 2550 / 2550
Balance -1540 / -1540 -1190 / -1190
Review of Systems
-
Respiratory: Reports Wheezing
Physical Exam
-
General: Well Developed, Well Nourished, Comfortable and Conversant
HEENT: Normocephalic
Respiratory: Wheezes and Non Labored Respirations; Negative Accessory Resp Muscle Use
Cardiac: Regular Rhythm and S1/S2
GI: Soft and Nontender
Neuro: Awake, Alert and Oriented
Psych: Calm and Intact Judgement/Insight
Data Reviewed
-
Diagnostic Radiology: Image personally visualized and interpreted and Report Reviewed by me
CT Scan: Report Reviewed by me
Labs: Labs Reviewed by me
--- NOTE | 2023-11-25 11:01 | W.PN.PUL3 ---
Today's Communication / Plan
-
Doing well today, can transition steroids to PO taper
PT/OT, home O2 assessment
Encouraged OOB/PT, spoke to family at bedside/updated plan
Outpatient FU recommended
Discharge planning per team
Assessment
-
73-year-old male tobacco smoker with a past medical history of COPD, history of alcohol use disorder, vitamin D deficiency and history of SIADH who presents with SOB x 4-5 days. He has been having sore throat + nasal congestion with white sputum
production and his cough. No fevers, chills or chest pain. In the ER he was afebrile to 99 �F, tachycardic to 103, breathing at 18-22 breaths/min, hypertensive to 179/110, and SaO2 94% on room air. Initial labs showed normal WBC at 10.7,
hyponatremic to 131, low serum chloride of 95, and COVID antigen negative, and flu A/B were also negative. CXR was done showing chronic right-sided pleural parenchymal scarring vs pleural effusion; he was given Decadron, DuoNebs and Mucinex. He
was admitted to the hospitalist service. He has required between 0 to 2 L/min nasal cannula. CTA chest done on 11/20/2023 showing centrilobular emphysema with excessive dynamic airway collapse in the left mainstem bronchus, with bilateral bronchial
wall thickening and medial RML atelectasis with linear scarring/consolidation. Given his COPD exacerbation with intolerance to albuterol/xopenex, pulmonary service now consulted for additional management/recommendations.
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
Impression:
#Acute COPD exacerbation
#Acute respiratory failure with hypoxia due to above
#Former tobacco use disorder with 79-eibp-fqey Hx
#Hypochloremic, hyponatremia
#HTN
#Hx of pneumonia
#Hx of alcohol use disorder (has been sober >5 years now)
Plan:
Continue systemic steroids and wean as tolerated--weaned down to 4 mg IV q12hr today from 4mg IV q8hr
Still wheezing today, but better than on admission
Will transition to oral prednisone today
Considering patient does not tolerate nebulized xopenex and does well with nebulized albuterol at home, I started nebulized albuterol prn, with long-acting maintenance inhaler with LAMA/LABA with striverdi + spiriva --> he is enjoying this
combination
Can continue this regiment as OP
- Atrovent stopped
- When patient is ready for discharge, we can DC on Anoro Ellipta versus Stiolto
- Inhaler technique was reviewed
- I will arrange for outpatient follow-up with me for full PFTs and COPD management
- Maintain SpO2 >88-94% with supplemental O2 and wean as tolerated
- COPD education
- Continue vest therapy while he remains inpatient
- Mucinex
- Flutter valve
- Nicotine cessation was reinforced
- Recommend nicotine patch
- He qualifies for lung cancer screening via annual LDCT Chest given he quit smoking about 1 month ago, has >91-efhw-agpi history and is between the ages of 50�78. He just had a CTA chest 3 days ago so next imaging study can be done in 1 year.
This can be discussed in the office.
- Incentive spirometer encouraged
- Replete electrolytes with K>4, Mg>2
- Maintain euglycemia with goal BG >100 and <180
- DVT ppx
PT eval
Home O2 eval
Discussed with daughter at bedside
I will arrange for outpatient follow-up with me in the office for full PFTs, discussion of LDCT chest for lung cancer screening, and symptom management of his COPD with inhalers, etc.
Discharge planning for team
Data:
CTA Chest 11-20-2023: No acute disease of the chest. No evidence of pulmonary embolus.Mild emphysematous disease.Mild right lower lobe and right middle lobe atelectasis versus scarring.
Mild posterior right lower lobe pleural thickening. Stable
Total time spent today was 51 minutes for this encounter. Time includes reviewing laboratory test/imaging results, reviewing pertinent medical records, obtaining and reviewing medical history, performing an appropriate exam, ordering medications,
tests and procedures. Time also includes documentation of this encounter, coordinating patient care and communicating with other healthcare professionals. Total time does not include separately billed tests performed on this date of service.
Subjective Data
-
Date of Service:
Date of Service: November 25, 2023
Chief Complaint: Pulmonary Follow Up
Subjective:
No new events ON, stable on RA
daughter at bedside
Objective Data
Data Reviewed
Vital Signs / I&O / Oxygen:
Vital Signs
Temp Pulse Resp BP Pulse Ox
98.8 F 76 18 144/87 96
11/25/23 07:20 11/25/23 08:31 11/25/23 08:31 11/25/23 07:20 11/25/23 07:20
Intake and Output
11/24/23 11/25/23 11/26/23
06:59 06:59 06:59
Intake Total 360 / 360 1360 / 1360
Output Total 1900 / 1900 2550 / 2550
Balance -1540 / -1540 -1190 / -1190
SaO2 96
Nasal Cannula flow liters per 2
minute
Physical Exam
General: Respiratory Distress (negative), Comfortable, Chills (negative) and Sweats (negative)
HEENT: Normocephalic, Anicteric and Moist Mucous Membranes
Cardiovascular: S1-S2, Regular Rhythm and Peripheral Edema (Negative)
Respiratory: Clear and Non-Labored Respirations
GI: Soft, Non Distended, Non Tender and Normal Bowel Sounds
Neurology: AO x 3 and Tremors (Negative)
Skin: Warm, Dry and Jaundice (negative)
Labs/Micro/Reports
Lab Data
11/25/23 05:33
11/25/23 05:33
[2023-11-25] MEDS: ZITHROMAX INFUSION 250 IV (12:13)
[2023-11-25 14:41] LABS: Procalcitonin < 0.05 ng/ml (0.0-0.25)
[2023-11-25 15:20] VITALS: BP 150/90
[2023-11-25 16:14] VITALS: PULSE 105; O2SAT 95
[2023-11-25] MEDS: LOVENOX 40 MG SC (17:03)
--- NOTE | 2023-11-25 17:14 | PTCARENOTE ---
Pt on room air with POX 92-96% denies SOB. Lung sounds noted to have less of an inspiratory and expiratory wheeze.
[2023-11-25 23:00] VITALS: BP 142/79
[2023-11-26 05:55] LABS: % Basophils 0.5 % (0-2); % Immature Granulocytes 6.9 % (0-0.5); % Lymphocytes 4.6 % (20.5-51.1); % Monocytes 7.1 % (1.7-9.3); % Neutrophils 80.9 % (42.2-75.2); Absolute Basophils 0.1 10^3/uL (0-0.2); Absolute Immature Granulocytes 1.5 10^3/uL (0-0.05); Absolute Monocytes 1.5 10^3/uL (0.1-0.6); Absolute Neutrophils 17.6 10^3/uL (1.4-6.5); Hematocrit 38.2 % (39.0-52.0); Hemoglobin 13.6 g/dL (13.0-18.0); Mean Corp Hgb Conc. 35.6 g/dL (33.0-37.0); Mean Corpuscular Hgb 30.9 pg (27.0-31.0); Mean Corpuscular Volume 86.8 fL (80.0-94.0); Mean Platelet Volume 10.5 fL (7.4-10.4); Nucleated Red Blood Cells % 0 % (-); Platelet Count 419 10^3/uL (130-400); Red Cell Dist. Width 15.8 % (11.5-14.5); White Blood Cell Count 21.7 10^3/uL (4.8-10.8)
[2023-11-26 06:00] VITALS: BMI 25.7
[2023-11-26 06:19] LABS: Blood Urea Nitrogen 16 mg/dl (9-20); Calcium 8.8 mg/dl (8.4-10.2); Carbon Dioxide 32 mmol/L (22-30); Chloride 91 mmol/L (98-107); Estimated Creatinine Clearance 102 ml/min; Glucose 88 mg/dl (70-99); Potassium 4.5 mmol/L (3.5-5.1); Sodium 128 mmol/L (135-145); eGFR > 60.00
[2023-11-26 07:00] VITALS: BP 164/92
[2023-11-26] MEDS: VENTOLIN NEBULES 1.25 MG INH ×2 (07:43→13:56)
[2023-11-26] MEDS: SPIRIVA RESPIMAT 2.5 MCG 2 PUFF INH (07:43)
[2023-11-26] MEDS: STRIVERDI RESPIMAT 2 PUFF INH (07:43)
--- NOTE | 2023-11-26 08:37 | W.PN.HOSP.TC ---
Today's Communication/Plan
-
Discussed case with pulmonary who will see the patient later today, followed by possible discharge later today vs. tomorrow
Assessment / Plan
Assessment / Plan
Physical Exam
General: Not in acute distress
HEENT: Normocephalic
Respiratory: Decreased breath sounds bilaterally
Cardiac: Regular Rhythm and S1/S2
GI: Soft and Nontender. Positive bowel sounds.
Neuro: Awake, Alert and Oriented
Psych: Calm and Intact Judgement/Insight
Assessment/Plan
HPI: 72 M PMH COPD, SIADH, steroid-induced hyperglycemia, former ETOH use disorder, vitamin D deficiency; p/w SOB ongoing for 4-5 days.
He has chronic dyspnea at baseline. Associated with sore throat, nasal congestion, cough with minimal white sputum
Denies to fever, chills, chest pain.
73-year-old male, here with COPD exacerbation on Decadron 4 IV Q8H. Pulmonary following. He still has significant wheezing but today better. PT OT eval and checking walking pulse Ox. Possible DC in 1-2 days. Will need Anora inhaler upon discharge.
A/P:
# COPD exacerbation
CXR Small right pleural effusion versus chronic pleural-parenchymal thickening. Similar appearance compared to previous chest radiographs.
CT Chest: No acute disease of the chest. No evidence of pulmonary embolus. Mild right lower lobe and right middle lobe atelectasis versus scarring. Mild posterior right lower lobe pleural thickening. Stable
COVID/Flu negative, procal negative
Status post IV Dexamethasone 4 mg Q8H
Now on Prednisone 50 mg PO daily
Albuterol neb restarted and pt tolerating this time. Continue striverdi + spiriva. On discharge will plan to discharge with Anoro Ellipta versus Stiolto
Added azithromycin 3 days (Day 3 will be 11/27/23)
Cont Mucinex, Acapella, vest therapy which is helping him bringing up phlegm
Pulmonary on board, appreciate evaluation
Follow-up with Dr. Mery outpatient
# Acute hypoxic respiratory insufficiency, resolved
weaned off 2L NC, pt is not on home O2
Saturating in the 90s on room air and at rest
# h/o nicotine dependence
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
Continue Nicotine patch outpatient
# Hyponatremia
# h/o SIADH
With concurrent low chloride level, suspect hypovolemic hyponatremic
Lifted fluid restriction
Monitor Na level
On 11/26/23, spoke with groover and striper operator Dr. Houston, who advised that patient's current sodium level is patient's baseline, continue to monitor sodium, if drops below 125 then contact nephrology, but for now continue PO Daily FR 48 to 60 ounces
# Former alcohol use disorder
No alcohol in 5 years
# Vitamin D deficiency
Continue vitamin D
DVT Px: LMWH
Code: Full
Anticipated Discharge: Within 24 hours
Subjective/Interval History
-
Date of Service: November 26, 2023
Patient was seen and examined. He reports feeling better compared to when he came in, he denied any new chest pain or worsening shortness of breath.
Objective Data
-
Labs:
Laboratory Results
11/26/23
05:23
WBC 21.7 H
Hgb 13.6
Hct 38.2 L
Plt Count 419 H
Sodium 128 L
Potassium 4.5
Chloride 91 L
Carbon Dioxide 32 H
BUN 16
Creatinine 0.6 L
Glucose 88
Calcium 8.8
Vital Signs:
Vital Signs
Temp Pulse Resp BP Pulse Ox
97.5 F 77 18 142/79 98
11/25/23 23:00 11/26/23 07:47 11/26/23 07:47 11/25/23 23:00 11/26/23 07:47
I&O
11/25/23 11/26/23 11/27/23
06:59 06:59 06:59
Intake Total 1360 / 1360 1630 / 1630
Output Total 2550 / 2550 1974
Balance -1190 / -1190 -345 / -345
[2023-11-26] MEDS: DELTASONE 50 MG PO (08:57)
[2023-11-26] MEDS: MUCINEX 600 MG PO (08:57)
[2023-11-26] MEDS: ASPIR LOW (ENTERIC COATED) 81 MG PO (08:57)
--- NOTE | 2023-11-26 10:11 | CM ---
Addendum entered by Krupa Armstrong 11/26/23 13:19:
Per pulmonary patient to follow up in office for pulmonary vest.
Original Note:
client customer manager reviewed patient's chart and patient did well with physical therapy, patient does not feel he needs visiting nurses. Physical therapy are recommending outpatient therapy at discharge. Patient is 98% on room air per chart.
Plan; To follow with patient and reach out to Pulmonary regarding possible Pulmonary vest at discharge.
[2023-11-26] MEDS: ZITHROMAX INFUSION 250 IV (11:51)
[2023-11-26 15:00] VITALS: BP 141/77
--- NOTE | 2023-11-26 15:06 | W.PN.PUL3 ---
Today's Communication / Plan
-
Plan to discharge on Striverdi/Spiriva
Continue albuterol nebulizer as needed
Pursue slow taper of prednisone, decrease by 10 mg every 3 days until seen in the office
Discussed importance of tobacco cessation
Pulmonary follow-up recommendations left in chart
We will sign off. Please call with questions
Assessment
-
73-year-old male tobacco smoker with a past medical history of COPD, history of alcohol use disorder, vitamin D deficiency and history of SIADH who presents with SOB x 4-5 days. He has been having sore throat + nasal congestion with white sputum
production and his cough. No fevers, chills or chest pain. In the ER he was afebrile to 99 �F, tachycardic to 103, breathing at 18-22 breaths/min, hypertensive to 179/110, and SaO2 94% on room air. Initial labs showed normal WBC at 10.7,
hyponatremic to 131, low serum chloride of 95, and COVID antigen negative, and flu A/B were also negative. CXR was done showing chronic right-sided pleural parenchymal scarring vs pleural effusion; he was given Decadron, DuoNebs and Mucinex. He
was admitted to the hospitalist service. He has required between 0 to 2 L/min nasal cannula. CTA chest done on 11/20/2023 showing centrilobular emphysema with excessive dynamic airway collapse in the left mainstem bronchus, with bilateral bronchial
wall thickening and medial RML atelectasis with linear scarring/consolidation. Given his COPD exacerbation with intolerance to albuterol/xopenex, pulmonary service now consulted for additional management/recommendations.
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
Impression:
#Acute COPD exacerbation
#Acute respiratory failure with hypoxia due to above
#Former tobacco use disorder with 81-mfcd-caxl Hx
#Hypochloremic, hyponatremia
#HTN
#Hx of pneumonia
#Hx of alcohol use disorder (has been sober >5 years now)
Plan/recommendations
Patient appears to be objectively and subjectively improved
Decreased breath sounds noted but minimal wheeze
Transition to oral prednisone 11/24
Productive cough has improved. Patient not sure whether best therapy is helping
He did not like Xopenex nebulizer
Considering patient does not tolerate nebulized xopenex and does well with nebulized albuterol at home, I started nebulized albuterol prn, with long-acting maintenance inhaler with LAMA/LABA with striverdi + spiriva --> he is enjoying this
combination
Can continue this regiment as OP
For now lets continue with current regimen, this can be modified as outpatient
arrange for outpatient follow-up with me for full PFTs and COPD management
Maintain SpO2 >88-94% with supplemental O2 and wean as tolerated
COPD education
Continue vest therapy while he remains inpatient
Mucinex
Flutter valve
Nicotine cessation was reinforced. He states he quit 6 months ago
He qualifies for lung cancer screening via annual LDCT Chest given he quit smoking about 1 month ago, has >25-kfeg-yijd history and is between the ages of 50�78. He just had a CTA chest 3 days ago so next imaging study can be done in 1 year. This
can be discussed in the office.
PT eval
Home O2 eval
I will arrange for outpatient follow-up with me in the office for full PFTs, discussion of LDCT chest for lung cancer screening, and symptom management of his COPD with inhalers, etc.
Discharge planning for team
Okay for discharge from pulmonary standpoint. We will sign off. Please call with questions
Data:
CTA Chest 11-20-2023: No acute disease of the chest. No evidence of pulmonary embolus.Mild emphysematous disease.Mild right lower lobe and right middle lobe atelectasis versus scarring.
Mild posterior right lower lobe pleural thickening. Stable
Subjective Data
-
Date of Service:
Date of Service: November 26, 2023
Chief Complaint: Pulmonary Follow Up
Subjective:
Patient feels well. Describes minimal productive cough. Denies hemoptysis, chest pain, nausea, abdominal pain. Not sure whether vest is helping him.
Objective Data
Data Reviewed
Vital Signs / I&O / Oxygen:
Vital Signs
Temp Pulse Resp BP Pulse Ox
97 F 80 18 164/92 96
11/26/23 07:00 11/26/23 13:57 11/26/23 13:57 11/26/23 07:00 11/26/23 13:57
Intake and Output
11/25/23 11/26/23 11/27/23
06:59 06:59 06:59
Intake Total 1360 / 1360 1630 / 1630
Output Total 2550 / 2550 1974 / 1974
Balance -1190 / -1190 -345 / -345
SaO2 96
Nasal Cannula flow liters per 2
minute
Physical Exam
General: Comfortable
HEENT: Normocephalic, Anicteric and Moist Mucous Membranes
Cardiovascular: S1-S2, Regular Rhythm and Peripheral Edema (Negative)
Respiratory: Clear, Wheeze (Minimal), Crackles (n), Rhonchi (n), Non-Labored Respirations and Other (Decreased)
GI: Soft, Non Distended, Non Tender and Normal Bowel Sounds
Neurology: Awake, Alert and No Motor Deficits (n)
Skin: Warm, Dry, Cyanosis (n), Jaundice (negative) and Rash (n)
Labs/Micro/Reports
Lab Data
11/26/23 05:23
11/26/23 05:23
[2023-11-26] MEDS: LOVENOX 40 MG SC (17:06)
--- NOTE | 2023-11-26 18:10 | W.DS.TRANS ---
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
-
Discharge Instructions:
Discharge Diagnosis/Procedures COPD Exacerbation
Acute Hypoxic Respiratory Insufficiency -
RESOLVED
Nicotine Dependence
Hyponatremia
History of Syndrome of Inappropriate
Antidiuretic Hormone Secretion
Former Alcohol Use
Vitamin D Deficiency
Diet Low Fat,Low Cholesterol,Restrict fluids to 48 oz
Activity As tolerated
Blood Work Check CBC and BMP with your outpatient primary
care provider's office in 2 to 3 days
Instructions: Smoking: Not Just Harmful to Your Lungs and Heart
Quitting smoking
Stand-Alone Forms:
Changes to Home Medications: Yes
Discharge Medications:
DC Medications w/original date entered in [employer]
aspirin 81 mg tablet,delayed release 81 mg PO DAILY Blood Clot Prevention/Tx 07/11/22
acetaminophen 325 mg tablet (Tylenol) 650 mg PO QIDPRN PRN mild pain 11/18/23
cholecalciferol (vitamin D3) 50 mcg (2,000 unit) tablet 2,000 unit PO DAILY Supplement 11/19/23
albuterol sulfate 1.25 mg/3 mL solution for nebulization 1.25 mg (3 mL) inhalation R TID PRN shortness of breath or wheezing #75 mL 11/26/23
guaifenesin 600 mg tablet, extended release 12 hr 600 mg PO Q12 #20 tabs 11/26/23
olodaterol 2.5 mcg/actuation mist for inhalation (Striverdi Respimat) 2 puff inhalation R DAILY #4 grams 11/26/23
prednisone 10 mg tablet 10 mg PO DIRECTED #25 tabs 11/26/23
tiotropium bromide 2.5 mcg/actuation mist for inhalation (Spiriva Respimat) 2 puff inhalation R DAILY #4 grams 11/26/23
Home Medication Changes
Albuterol nebulization (as needed) solution, Guaifenesin, Prednisone Taper, Spiriva and Striverdi are all new medications.
Scheduled home Ipratropium-Albuterol has been discontinued.
Pending Results: No
Total time spent discharging patient (in min): 40
== END 2023-11-26 20:04 | disposition home or self-care (01) | DRG 191 ==
LOC: 3 WEST ACU 09:56
PROVIDERS: Clinical Nurse Specialist Family Health; Internal Medicine; ADMITTING PHYSICIAN Internal Medicine; ATTENDING PHYSICIAN Hospitalist; CONSULT PHYSICIAN Internal Medicine Critical Care Medicine; EMERGENCY PHYSICIAN Emergency Medicine; FAMILY PHYSICIAN Family Medicine
DX: J43.2 Centrilobular emphysema (principal); E22.2 Syndrome of inappropriate secretion of antidiuretic hormone; J90 Pleural effusion, not elsewhere classified; J98.11 Atelectasis; I10 Essential (primary) hypertension; F10.11 Alcohol abuse, in remission; E55.9 Vitamin D deficiency, unspecified; R09.02 Hypoxemia; R06.89 Other abnormalities of breathing; R73.9 Hyperglycemia, unspecified; T38.0X5A Adverse effect of glucocorticoids and synthetic analogues, initial encounter; Y92.9 Unspecified place or not applicable; Z87.01 Personal history of pneumonia (recurrent); Z79.82 Long term (current) use of aspirin; Z79.51 Long term (current) use of inhaled steroids; Z79.52 Long term (current) use of systemic steroids; Z87.891 Personal history of nicotine dependence; Z91.030 Bee allergy status; Z11.52 Encounter for screening for COVID-19
CPT/HCPCS: 36600; 71046; 71275; 80048; 80053; 82805; 84145; 84484; 85025; 86803; 87502; 87811; 93005; 94640; 94669; 96374; 97116; 97162; 97166; 99285; 99406; Q9967

== ENCOUNTER → 2025-01-05 12:52 | Outpatient (REF) | payer BC, MEDICARE, SELFPAY | LOC: HWRAD 12:52 | PROVIDERS: ATTENDING PHYSICIAN Internal Medicine Critical Care Medicine; FAMILY PHYSICIAN Internal Medicine | DX: Z87.891 Personal history of nicotine dependence (principal) | CPT/HCPCS: 71271 ==